=== PATIENT | female | born 1970 | race Caucasian/White ===

== ENCOUNTER → 2018-02-10 09:49 | Outpatient (CLI) | payer BC, SELFPAY ==
--- NOTE | 2018-02-10 09:57 | CT_ITS ---
CT abdomen pelvis wo/w con Ordering Physician: Cl Berman MD Patient Age: 47 years: Female HISTORY: ITS.REASON: r/o Hernia Right lower quadrant pain possible hernia possible pain related to ensure thousand TECHNIQUE: Helical CT scanning performed through the abdomen and pelvis following bolus administration 75 cc [id number]. COMPARISON :None FINDINGS Lung bases are clear. Probable small hiatal hernia. Heart normal size Abdomen/pelvis. Liver, spleen, pancreas satisfactory. Adrenals unremarkable. Gallbladder is been removed no biliary ductal dilatation. . Aorta normal caliber SMA celiac renal artery origins satisfactory. Pelvis. The left Essure filament is seen extending from the body of the uterus towards the left cornu at its junction with the left fallopian tube The right Essure filament extends more peripherally through the right cornu and towards the right adnexa. It is difficult to confirm its position relative to the right fallopian tube. It Seems to reside along the anterior aspect of right fallopian tube. Please feel free to review images with us in radiology The small 2.5 cm right ovary is seen just lateral to the tip of this more peripherally extending right Essure filament The appendix is normal. Terminal ileum is normal. Moderate stool is seen throughout the colon most generous at the right colon. Perhaps slight increased stool right colon Osseous. Mild degenerative facet changes at the lowermost L-spine. Benign appearing bone islands 7.5 x 8 mm at the left iliac bone just lateral to left SI joint. IMPRESSION: - 1. No acute findings abdomen pelvis. Appendix normal. Terminal ileum unremarkable. No free fluid. No free air. 2. Moderate stool throughout colon most generous and evident throughout the right colon. 3. Bilateral Essure filament.: The right Essure filament extends significant more peripheral, more lateral than does the left. Theright Essure filament extends throughthe cornu with tip likely just medial to the right ovary Feel free to review images with us and radiology The left Essure filame nt extends from the body of uterus to the cornu & likely just to the junction with the left fallopian tube
== END ==
PROVIDERS: Family Provider Internal Medicine Adolescent Medicine; PCP Internal Medicine Adolescent Medicine; Visit Provider Nurse Practitioner Obstetrics & Gynecology
DX: R10.2 Pelvic and perineal pain (principal); R10.31 Right lower quadrant pain
CPT/HCPCS: 74170; 74178; Q9967

== ENCOUNTER → 2018-02-23 10:53 | Outpatient (CLI) | payer BC, SELFPAY ==
--- NOTE | 2018-02-23 10:54 | MM_ITS ---
MM Dig screening mamm BI w/CAD CAD Screening COMPARISON: Digital mammograms 02/12/2017 and 02/10/2016 INDICATION: There is no personal or family history of breast cancer TECHNIQUE: Standard CC and MLO images were obtained. R2 CAD reviewed. FINDINGS: Mild to moderate diffuse fibroglandular densities are seen throughout both breasts basically stable and unchanged from previous exams. There is no suspicious lesion and no suspicious microcalcifications. There are small nodes in both axilla. IMPRESSION: Stable exam no suspicious lesion seen BI-RADS Category: 1 Negative RECOMMENDED FOLLOW-UP: 1YR - 1 YEAR FOLLOW-UP (A letter has been sent to the patient regarding results of the study.)
== END ==
PROVIDERS: Family Provider Internal Medicine Adolescent Medicine; PCP Internal Medicine Adolescent Medicine; Visit Provider Nurse Practitioner Obstetrics & Gynecology
DX: Z12.31 Encounter for screening mammogram for malignant neoplasm of breast (principal)
CPT/HCPCS: 77067

== ENCOUNTER → 2019-01-25 13:34 | Outpatient (CLI) | payer BC, SELFPAY ==
--- NOTE | 2019-01-25 13:36 | CA_ITS ---
PROCEDURE: 2-D M-mode and color Doppler study INDICATIONS FOR THE TEST: Chest pain COPD Heart Murmur Tobacco Smoking Palpitations Fatigue Syncope Edema Hypertension Diabetes Mellitus Rheumatic Fever SOB CELESTIN Obesity Hyperlipidemia+ Family History HD Additional History abn ekg PATIENT INFORMATION HEIGHT: 66 WEIGHT:209 GENDER: Female B/P:116/74 2-D/M-MODE INTERPRETATION: 2-D MEASUREMENTS OBSERVED VALUES IN CMS Right Ventricular Dimension (RVDd) 2.2 Interventricular Septum (Thickness)(IVsd) 1.0 Left Ventricular Internal Dimensions(LVIDd) 5.1 Left Ventricular Posterior Wall (Thickness)(LVPWd) 0.8 Aortic Root 2.3 Aortic Cusp Separation 1.9 Left Atrial Dimensions (LAD) 3.5 2D 1. Left atrium is normal size, left ventricle is normal size, there is preserved left ventricular systolic function, visually estimated ejection fraction 55% with no regional wall motion abnormality. 2. The right ventricle are normal size and contractility. 3. The aortic, mitral and tricuspid valvular grossly normal. 4. The pulmonic valve is poorly visualized. 6. No significant pericardial effusion noted DOPPLER INTERROGATION: Doppler interrogation of the aortic, mitral and tricuspid valvular presence of mild mitral and tricuspid regurgitation, tricuspid regurgitation jet velocity is inadequate for calculation of the right ventricular systolic diastolic parameters are within normal range. CONCLUSION: 1. Normal left ventricular size, preserved left ventricular systolic function, visually estimated ejection fraction 55% with no regional wall motion abnormality, diastolic parameters are within normal range. 2. Mild mitral and tricuspid regurgitation 3. No significant pericardial effusion noted.
== END ==
PROVIDERS: PCP Internal Medicine Adolescent Medicine; Visit Provider Internal Medicine
DX: I49.3 Ventricular premature depolarization (principal)
CPT/HCPCS: 93306

== ENCOUNTER → 2019-02-07 09:00 | Outpatient (CLI) | payer BC, SELFPAY ==
--- NOTE | 2019-02-07 09:01 | MM_ITS ---
MM Dig screening mamm BI w/CAD ORDERING PHYSICIAN : Cl Berman MD PATIENT AGE: 48 years GENDER: Female COMPARISON: February 2016, February 2017, February INDICATION: ITS.REASON: Routine Screening Mammogram No hormones no new complaints noncontributory family history TECHNIQUE: Standard CC and MLO images were obtained. R2 CAD reviewed. . Additional axillary CC view right breast included \ FINDINGS: Moderate breast density with scattered fibrolinear elements throughout mainly the superior breast again noted . No significant new findings. No suspicious or dominant mass. No suspicious calcifications. The small nodular density medial left breast anteriorly on cc view is again noted-is less evident than studies from 2015, 2016 Bilateral follow-up in one year recommended. ------IMPRESSION: Stable bilateral mammogram. No significant new areas of concern. Moderate breast density. Bilateral follow-up one year recommended BI-RADS Category: 2 Benign Finding(s) RECOMMENDED FOLLOW-UP: 1YR 1 YEAR FOLLOW-UP (A letter has been sent to the patient regarding results of the study.)
[2019-02-07 09:43] LABS: Basophils % 0.6 % (0.1-2.0); Eosinophils # 0.2 K/mm3 (0.0-0.4); Hematocrit 40.9 % (37.0-47.0); Hemoglobin 13.6 g/dL (12.2-16.2); Lymphocytes # 2.5 K/mm3 (0.7-4.5); Lymphocytes % 36.6 % (10-50); Mean Corpuscular HGB Conc 33.4 g/dL (31.8-35.4); Mean Corpuscular Hemoglobin 30.1 pg (27.0-31.2); Mean Platelet Volume 7.2 fl (7.4-10.4); Monocytes # 0.2 K/mm3 (0.1-1.0); Monocytes % 3.5 % (1.7-9.3); Neutrophils # 3.8 K/mm3 (1.8-7.8); Neutrophils % 56.3 % (37.0-80.0); Platelet Count 226 K/mm3 (142-424); Red Blood Count 4.54 M/mm3 (4.20-5.40); Red Cell Distribution Width 13.4 % (11.5-17.5); White Blood Count 6.8 K/mm3 (4.8-10.8)
[2019-02-07 10:54] LABS: Alanine Aminotransferase 22 U/L (12-78); Albumin Level 3.6 gm/dL (3.4-5.0); Alkaline Phosphatase 117 U/L (46-116); Anion Gap 13.1 mEq/L (5-15); Aspartate Amino Transferase 15 U/L (15-37); Bilirubin,Total 0.4 mg/dL (0.2-1.0); Blood Urea Nitrogen 15 mg/dL (7-18); Calcium 9.3 mg/dL (8.5-10.1); Carbon Dioxide 27 mmol/L (21.0-32.0); Chloride 106 mmol/L (98-107); Chol/HDL Ratio 5.7 (1-3.5); Cholesterol 263 mg/dL (140-200); Creatinine,Serum 0.88 mg/dL (0.55-1.02); Estimated Glomerular Filt Rate 69 ml/min (>60); Free Thyroxine Index 2.5 ug/dL (5.93-13.13); GFR (African American) 83 ML/MIN (>60); Globulin 3.5 gm/dl (1.3-3.2); Glucose 98 mg/dL (74-106); HDL Cholesterol 46 mg/dL (29-89); LDL Cholesterol 197 mg/dL (0-130); Magnesium 2.2 mg/dL (1.4-2.2); Potassium 4.1 mmoL/L (3.5-5.1); Sodium 142 mmol/L (136-145); T4 (Thyroxine) 7.3 ug/dl (4.7-13.3); Thyroid Stimulating Hormone 1.11 uIU/ml (0.358-3.740); Total Protein,Serum 7.1 gm/dL (6.4-8.2); Triglycerides 98 mg/dL (30-200); Triiodothryronine (T3) Uptake 34 % (31-39); VLDL Cholesterol 20 mg/dL (0-40)
[2019-02-08 14:12] LABS: Vitamin B12 299 pg/mL (232-1245)
== END ==
PROVIDERS: PCP Internal Medicine Adolescent Medicine; Visit Provider Nurse Practitioner Obstetrics & Gynecology
DX: Z12.31 Encounter for screening mammogram for malignant neoplasm of breast (principal); E53.8 Deficiency of other specified B group vitamins; E78.5 Hyperlipidemia, unspecified; Z87.898 Personal history of other specified conditions
CPT/HCPCS: 36415; 77067; 80053; 80061; 82607; 83735; 84436; 84443; 84479; 85025

== ENCOUNTER → 2019-11-24 13:39 | Outpatient (CLI) | payer OTHER, SELFPAY ==
[2019-11-24 14:46] LABS: Basophils # 0.1 K/mm3 (0-0.2); Basophils % 0.5 % (0.1-2.0); Eosinophils # 0.2 K/mm3 (0.0-0.4); Eosinophils % 1.6 % (0.1-12.0); Hematocrit 42.4 % (37.0-47.0); Hemoglobin 13.1 g/dL (12.2-16.2); Lymphocytes # 2.6 K/mm3 (0.7-4.5); Lymphocytes % 23.8 % (10-50); Mean Corpuscular HGB Conc 30.8 g/dL (31.8-35.4); Mean Corpuscular Volume 94.1 fl (81-99); Mean Platelet Volume 7.3 fl (7.4-10.4); Monocytes # 0.5 K/mm3 (0.1-1.0); Monocytes % 4.2 % (1.7-9.3); Neutrophils # 7.6 K/mm3 (1.8-7.8); Neutrophils % 69.9 % (37.0-80.0); Platelet Count 269 K/mm3 (142-424); Red Blood Count 4.51 M/mm3 (4.20-5.40); Red Cell Distribution Width 14.6 % (11.5-17.5); White Blood Count 10.9 K/mm3 (4.8-10.8)
[2019-11-24 15:34] LABS: Alanine Aminotransferase 26 U/L (12-78); Albumin Level 3.4 gm/dL (3.4-5.0); Albumin/Globulin Ratio 1.2 (1.1-1.8); Alkaline Phosphatase 119 U/L (46-116); Anion Gap 11.5 mEq/L (5-15); Aspartate Amino Transferase 12 U/L (15-37); Bilirubin,Total 0.4 mg/dL (0.2-1.0); Blood Urea Nitrogen 22 mg/dL (7-18); Calcium 9.2 mg/dL (8.5-10.1); Carbon Dioxide 31 mmol/L (21.0-32.0); Chloride 105 mmol/L (98-107); Creatinine,Serum 0.94 mg/dL (0.55-1.02); Estimated Glomerular Filt Rate 64 ml/min (>60); GFR (African American) 77 ML/MIN (>60); Globulin 2.9 gm/dl (1.3-3.2); Glucose 111 mg/dL (74-106); Potassium 4.5 mmoL/L (3.5-5.1); Sodium 143 mmol/L (136-145); Thyroid Stimulating Hormone 1.14 uIU/ml (0.358-3.740); Total Protein,Serum 6.3 gm/dL (6.4-8.2)
[2019-11-24 15:48] LABS: Hemoglobin A1C 5.7 % (0.0-7.0)
[2019-11-26 10:51] LABS: Vitamin B12 411 pg/mL (232-1245)
== END ==
PROVIDERS: Visit Provider Internal Medicine Adolescent Medicine
DX: M79.2 Neuralgia and neuritis, unspecified (principal)
CPT/HCPCS: 36415; 80053; 82607; 83036; 84443; 85025

== ENCOUNTER → 2019-12-07 10:49 | Outpatient (CLI) | payer OTHER, SELFPAY ==
--- NOTE | 2019-12-07 10:53 | CA_ITS ---
APPROVED REPORT Manager Line: CT Laterality: Bilateral Study Quality: Good Indications: palps Risk Factors Hyperlipidemia Doppler Spectral Velocity Analysis ECA (R) 87.70/15.50 cm/s ECA (L) 56.50/12.40 cm/s dICA (R) 118.40/49.60 cm/s dICA (L) 92.00/41.60 cm/s Lexii (R) 83.20/34.40 cm/s Lexii (L) 93.50/41.90 cm/s pICA (R) 118.50/33.70 cm/s pICA (L) 75.50/34.20 cm/s dCCA (R) 83.10/27.40 cm/s dCCA (L) 83.20/30.40 cm/s pCCA (R) 99.40/27.40 cm/s pCCA (L) 119.20/28.80 cm/s Vert (R) 48.70/16.60 cm/s Vert (L) 35.00/13.10 cm/s Findings Duplex evaluation demonstrates stenosis of the right proximal internal carotid artery <20% with PSV <140 cm/sec, EDV <100 cm/sec, and IC/CC Ratio <4.0. Duplex evaluation demonstrates stenosis of the left proximal internal carotid artery <20% with PSV <140 cm/sec, EDV <100 cm/sec, and IC/CC Ratio <4.0. Duplex evaluation demonstrates antegrade flow of the bilateral Vertebral Arteries. Conclusion No increased velocities to suggest hemodynamically significant stenosis in either internal carotid artery. Electronically signed by : Mack Gregorio MD 12/08/2019 17:34:43
[2019-12-07 16:07] LABS: Alanine Aminotransferase 36 U/L (12-78); Albumin Level 3.7 gm/dL (3.4-5.0); Alkaline Phosphatase 120 U/L (46-116); Aspartate Amino Transferase 19 U/L (15-37); Bilirubin,Direct 0.2 mg/dL (0.0-0.2); Bilirubin,Indirect 0.6 mg/dL (0.0-0.9); Bilirubin,Total 0.8 mg/dL (0.2-1.0); Chol/HDL Ratio 3.6 (1-3.5); Cholesterol 205 mg/dL (140-200); HDL Cholesterol 57 mg/dL (29-89); LDL Cholesterol 135 mg/dL (0-130); Triglycerides 64 mg/dL (30-200); VLDL Cholesterol 13 mg/dL (0-40)
== END ==
PROVIDERS: PCP Internal Medicine Adolescent Medicine; Visit Provider Internal Medicine Cardiovascular Disease
DX: R00.2 Palpitations (principal); R20.0 Anesthesia of skin; R94.31 Abnormal electrocardiogram [ECG] [EKG]; E78.5 Hyperlipidemia, unspecified
CPT/HCPCS: 36415; 80061; 80076; 93270; 93880

== ENCOUNTER → 2019-12-07 10:54 | Outpatient (CLI) | payer SELFPAY ==
--- NOTE | 2019-12-07 11:01 | CT_ITS ---
PROCEDURE: CT HEART W CALCIUM SCORE CLINICAL HISTORY: palps COMPARISON: No exams were available for comparison TECHNIQUE: Axial images obtained with sagittal and coronal reformats. All CT scans at the facility use one or more dose reduction, viz: automated exposure control, ma/kV adjustment per patient size (including targeted exams where dose is matched to indication, i.e. head), or iterative reconstruction technique. FINDINGS: Coronary artery calcium score is 0. However, on inspection of the images there is a small focus of calcification at the proximal LAD. The score was recalculated and a once again came up as 0. Incidental findings include a small amount of gas in the distal esophagus nonspecific but could be seen with reflux and evidence of old granulomatous disease. IMPRESSION: The coronary artery calcium score is calculated as 0. There is a small focus of calcification noted at the proximal LAD but not captured by the computer. Would imagine that the score would be less than 10 indicating low cardiovascular disease risk. Dictated by: Mack Gregorio MD 12/09/2019 13:04 Electronically signed by Mack Gregorio MD in [place] 12/09/2019 13:04
== END ==
PROVIDERS: PCP Internal Medicine Adolescent Medicine; Visit Provider Internal Medicine Cardiovascular Disease
DX: Z13.6 Encounter for screening for cardiovascular disorders (principal); R00.2 Palpitations; R20.0 Anesthesia of skin
CPT/HCPCS: 75571

== ENCOUNTER → 2019-12-22 15:07 | Outpatient (CLI) | payer OTHER, SELFPAY | PROVIDERS: PCP Internal Medicine Adolescent Medicine; Visit Provider Nurse Practitioner Family | DX: G47.33 Obstructive sleep apnea (adult) (pediatric) (principal); G47.9 Sleep disorder, unspecified; R53.83 Other fatigue | CPT/HCPCS: 94762 ==

== ENCOUNTER → 2020-01-04 08:47 | Outpatient (CLI) | payer OTHER, SELFPAY ==
--- NOTE | 2020-01-04 08:50 | MR_ITS ---
PROCEDURE: MR HEAD/BRAIN WO CON CLINICAL INDICATION: TRIGEMINAL NEURALGIA OF RT SIDE OF FACE, ACUTE NONINTRACTABL Tingling in the head and face on right and left side COMPARISON: No exams were available for comparison TECHNIQUE: Routine multiplanar multi echo sequences are performed without gadolinium enhancement. FINDINGS: No midline shift, mass effect, intracranial hemorrhage, or hydrocephalus is evident. No evidence of acute infarction. The cerebellopontine angles, cerebellum, and brainstem have an unremarkable appearance. The pituitary, optic chiasm, corpus callosum, and craniocervical junction have an unremarkable appearance. No mastoid effusion or sinus air-fluid level. In the right frontal region within the subdural area there is some heterogeneous mixed signal intensity. This is of questionable clinical significance. Possibly related to some complex subcortical calcification versus some mildly prominent subdural vessels. Would recommend CT of the head without and with contrast for better evaluation of the calvarium and possible subdural AVM at this region. IMPRESSION: 1. No acute intracranial findings. 2. In the right frontal region within the subdural area there is some heterogeneous mixed signal intensity. This is of questionable clinical significance and possibly related to some complex subcortical calcification versus some mildly prominent subdural vessels. Would recommend CT of the head without and with contrast for better evaluation of the calvarium and possible subdural AVM at this region Dictated by: Mack Gregorio MD 01/05/2020 09:34 Electronically signed by Mack Gregorio MD in [place] 01/05/2020 09:34
== END ==
PROVIDERS: PCP Internal Medicine Adolescent Medicine; Visit Provider Internal Medicine Adolescent Medicine
DX: G50.0 Trigeminal neuralgia (principal); R51 Headache
CPT/HCPCS: 70551

== ENCOUNTER → 2020-04-08 12:59 | Outpatient (CLI) | payer OTHER, SELFPAY ==
--- NOTE | 2020-04-08 13:15 | MM_ITS ---
PROCEDURE: MM DIG SCREENING MAMM BI W/CAD Digital Breast Tomosynthesis Included CLINICAL INDICATION: screening xmg There is no personal or family history of breast cancer COMPARISON: [facility] DIG MAMM-SCREEN KATHY W/CAD from 02/12/2017 [facility] MM Dig screening mamm BI w/CAD from 02/23/2018 [facility] MM Dig screening mamm BI w/CAD from 02/07/2019 TECHNIQUE: Standard CC and MLO images and 3D Tomosynthesis was obtained. R2 CAD reviewed. FINDINGS: Moderate diffuse fibroglandular densities are seen in the central portions of both breast and upper outer quadrants. There has been some fatty involution of the breast parenchyma since the 2 most recent exams. There is a possible new asymmetric density lower outer quadrant right breast best seen on the joselito images. Recommend the patient return for spot compression views and ultrasound for additional evaluation. IMPRESSION: Fibrofatty parenchyma with possible new asymmetric density BI-RAD Category: 0 Need Additional Imaging Evaluation FOLLOW-UP: IMM Immediate Follow-up Recommended (A letter has been sent to the patient regarding results of the study.) Dictated by: Dr. Tung Cavazos MD 04/08/2020 19:[address] Tung Cavazos MD in [place] 04/08/2020 19:35
== END ==
PROVIDERS: PCP Internal Medicine Adolescent Medicine; Visit Provider Nurse Practitioner Obstetrics & Gynecology
DX: Z12.31 Encounter for screening mammogram for malignant neoplasm of breast (principal)
CPT/HCPCS: 77063; 77067

== ENCOUNTER → 2020-04-11 12:40 | Outpatient (CLI) | payer OTHER, SELFPAY ==
--- NOTE | 2020-04-11 12:40 | MM_ITS ---
PROCEDURE: MM DIG MAMM DX UNILAT RT CAD Right breast ultrasound complete with axilla CLINICAL INDICATION: Abnormal Mamm Follow-up abnormal mammogram, asymmetric density COMPARISON: [facility] MM Dig screening mamm BI w/CAD from 02/23/2018 [facility] MM Dig screening mamm BI w/CAD from 02/07/2019 MM DIG SCREENING MAMM BI W/CAD from 04/08/2020 US BREAST RT COMPLETE from 04/11/2020 TECHNIQUE: Problem solving views performed of the right breast along with right breast ultrasound FINDINGS: There is average fibroglandular tissue. The area of asymmetry appears less apparent on the focal spot compression view. Right breast ultrasound: No cystic or solid lesions evident. Small nodes are present in the right axilla. IMPRESSION: BI-RAD Category: 3 Probably Benign Finding Short Term Follow-up FOLLOW-UP: 6M 6Month Follow-up (A letter has been sent to the patient regarding results of the study.) Dictated by: Mack Gregorio MD 04/12/2020 14:24 Electronically signed by Mack Gregorio MD in [place] 04/12/2020 14:24
== END ==
PROVIDERS: PCP Internal Medicine Adolescent Medicine; Visit Provider Nurse Practitioner Obstetrics & Gynecology
DX: R92.8 Other abnormal and inconclusive findings on diagnostic imaging of breast (principal)
CPT/HCPCS: 76641; 77061; 77065; G0279

== ENCOUNTER → 2020-04-18 10:35 | Outpatient (CLI) | payer OTHER, SELFPAY ==
--- NOTE | 2020-04-18 10:44 | CT_ITS ---
Procedure: CT ANGIO HEAD CLINICAL HISTORY: eval calvarium and for possible subdural AVM Facial numbness, follow-up abnormal MRI of the brain, possible subdural AVM COMPARISON: MR HEAD/BRAIN WO CON from 01/04/2020 TECHNIQUE: IV Contrast: 100ml Optiray 350 Axial images obtained with sagittal and coronal reformats. All CT scans at the facility use one or more dose reduction, viz: automated exposure control, ma/kV adjustment per patient size (including targeted exams where dose is matched to indication, i.e. head), or iterative reconstruction technique. FINDINGS: CT angiogram performed of the head with delayed images. Sagittal and coronal reformatted images are generated and reviewed as well. No evidence of aneurysm. No major intracranial occlusive process apparent.. There is persistent origin of the posterior cerebral arteries on both sides as a normal variant with small basilar artery. There is no evidence of a dural AVM. There is a defect within the right frontal bone along the endosteal surface which is felt to account for the MRI abnormality and may be a congenital defect. This is well-circumscribed with sclerotic margin. A vessel is present in this area however this does not have an appearance of an AVM. IMPRESSION: No AVM or aneurysm. There is an endosteal defect of the right frontal bone corresponding to the MRI abnormality and may only represent an incidental finding and may be due to an incidental arachnoid granulation. Six-month follow-up CT may confirm stability Dictated by: Mack Gregorio MD 04/19/2020 10:52 Electronically signed by Mack Gregorio MD in [place] 04/19/2020 10:52
[2020-04-18 10:57] LABS: Blood Urea Nitrogen 15 mg/dl (7-17); Estimated Glomerular Filt Rate 77 ml/min (>60); GFR (African American) 93 ML/MIN (>60)
== END ==
PROVIDERS: PCP Internal Medicine Adolescent Medicine; Visit Provider Specialist
DX: R90.89 Other abnormal findings on diagnostic imaging of central nervous system (principal); R20.0 Anesthesia of skin; R29.2 Abnormal reflex
CPT/HCPCS: 36415; 70496; 82565; 84520; Q9967

== ENCOUNTER → 2020-05-24 13:56 | Outpatient (CLI) | payer OTHER, SELFPAY ==
[2020-05-24 14:41] LABS: Chloride 104 mmol/L (98-107); Potassium 4.6 mmoL/L (3.5-5.1); Sodium 142 mmol/L (136-145)
[2020-05-24 14:44] LABS: Anion Gap 12.6 mEq/L (5-15); Blood Urea Nitrogen 10 mg/dl (7-17); Carbon Dioxide 30 mmol/L (22.0-30.0); Estimated Glomerular Filt Rate 89 ml/min (>60); GFR (African American) 108 ML/MIN (>60)
[2020-05-24 14:45] LABS: Calcium 10.2 mg/dl (8.4-10.2); Glucose 97 mg/dl (74-100)
[2020-05-24 15:26] LABS: Creatine Kinase 42 U/L (30-135)
[2020-05-26 10:02] LABS: Vitamin B12 881 pg/mL (232-1245)
== END ==
PROVIDERS: Internal Medicine Adolescent Medicine; Visit Provider Nurse Practitioner Family
DX: R90.89 Other abnormal findings on diagnostic imaging of central nervous system (principal); R29.2 Abnormal reflex; Z86.39 Personal history of other endocrine, nutritional and metabolic disease
CPT/HCPCS: 36415; 80048; 82550; 82607

== ENCOUNTER → 2020-08-06 14:45 | Outpatient (CLI) | payer OTHER, SELFPAY ==
--- NOTE | 2020-08-06 | MR_ITS ---
PROCEDURE: MR LUMBAR SPINE WO CON CLINICAL INDICATION: LBP LBP WITH BILATERAL LEG WEAKNESS. NO PRIOR. COMPARISON: MR MR HEAD/BRAIN WO CON from 01/04/2020 TECHNIQUE: Standard multiplanar multiecho sequences are performed without contrast. 3-D MIP and myelographic images are also rendered and reviewed FINDINGS: There is normal alignment. The spinal cord ends at the L1-L2 level. L1-L2: Mild disc desiccation with slight decrease in the disc height. L2-L3: Unremarkable. L3-L4: Mild facet and ligamentum hypertrophy. L4-5: Mild facet ligamentum hypertrophy with mild bilateral foraminal narrowing. L5-S1: Minimal bulging disc with facet ligamentum hypertrophy with mild to moderate bilateral foraminal narrowing. No extruded herniated disc or bony canal stenosis. Small amount of fluid is present along the posterior aspect of the facet at L5-S1 indicating mild facet arthritic change. Small amount fluid is present in the left facet at L4-5 and at L3-L4. There is a T1 and T2 hyperintense lesion involving the L1 vertebral body at 10 mm and may be due to a hemangioma IMPRESSION: There are mild degenerative changes as detailed above with mild facet arthritic change. Please see above for detailed description at each level. No extruded herniated disc or canal stenosis. Dictated by: Mack Gregorio MD 08/07/2020 10:11 Mack Gregorio MD in [place] 08/07/2020 10:11
== END ==
PROVIDERS: PCP Internal Medicine Adolescent Medicine; Visit Provider Nurse Practitioner Family
DX: M54.5 Low back pain (principal); R20.0 Anesthesia of skin
CPT/HCPCS: 72148; 76376

== ENCOUNTER → 2020-09-09 16:24 | Outpatient (CLI) | payer OTHER, SELFPAY ==
[2020-09-09 19:53] LABS: Ferritin 48.8 ng/ml (6.24-137)
[2020-09-18 10:45] LABS: AChR Binding Abs 0.04 nmol/L (0.00-0.24); AChR Blocking Abs 17 % (0-25); AChR Modulating Ab <12 % (0-20); Anti-Striation (muscle) Abs Negative (Neg:<1:40)
== END ==
PROVIDERS: Visit Provider Nurse Practitioner Family
DX: H53.2 Diplopia (principal); E83.10 Disorder of iron metabolism, unspecified; R20.8 Other disturbances of skin sensation
CPT/HCPCS: 36415; 82728; 84238; 86255

== ENCOUNTER → 2020-09-10 10:48 | Outpatient (POV) | payer OTHER, SELFPAY | PROVIDERS: Visit Provider Dermatology | DX: Z00.00 Encounter for general adult medical examination without abnormal findings (principal) ==

== ENCOUNTER → 2020-11-04 08:06 | Outpatient (CLI) | payer OTHER, SELFPAY ==
--- NOTE | 2020-11-04 08:07 | CT_ITS ---
PROCEDURE: CT HEAD/BRAIN WO CON CLINICAL INDICATION: 6 month f/u per radiology recommendation COMPARISON: CT CT ANGIO HEAD from 04/18/2020 TECHNIQUE: Axial images obtained. All CT scans at the facility use one or more dose reduction, viz: automated exposure control, ma/kV adjustment per patient size (including targeted exams where dose is matched to indication, i.e. head), or iterative reconstruction technique. FINDINGS: No midline shift, mass effect, intracranial hemorrhage, hydrocephalus, or extra-axial fluid collection is evident. The focal defect and ostial service right frontal bone is again seen stable unchanged from the previous study and likely representing a congenital anomaly or possibly sequela of old trauma.. No mastoid effusion. The internal auditory canals appear normal. No sinus air-fluid level. IMPRESSION: Stable focal defect and ostial surface right frontal bone I believe no further evaluation is indicated this time period. Otherwise unremarkable noncontrast CT scan of the brain Dictated by: Dr. Tung Cavazos MD 11/04/2020 08:45 Dr. Tung Cavazos MD in [place] 11/04/2020 08:45
== END ==
PROVIDERS: PCP Internal Medicine Adolescent Medicine; Visit Provider Specialist
DX: R90.89 Other abnormal findings on diagnostic imaging of central nervous system (principal); R20.0 Anesthesia of skin
CPT/HCPCS: 70450

== ENCOUNTER 2021-01-24 21:33 | Emergency (ER) | payer OTHER, SELFPAY ==
[2021-01-24 22:30] VITALS: BMI 32.5
[2021-01-24 22:36] LABS: Adenovirus,PCR Not Detected (NotDetected); Bordetella Pertussis Not Detected (NotDetected); Chlamydophila Pneumoniae, PCR Not Detected (NotDetected); Coronavirus 19, PCR Not Detected (NotDetected); Coronavirus 229E Not Detected (NotDetected); Coronavirus NL63 Not Detected (NotDetected); Coronavirus OC43 Not Detected (NotDetected); Coronovirus HKU1,PCR Not Detected (NotDetected); Human Metapneumovirus Not Detected (NotDetected); Influenza A, PCR Not Detected (NotDetected); Influenza AH1, 2009 Not Detected (NotDetected); Influenza AH1, PCR Not Detected (NotDetected); Influenza AH3,PCR Not Detected (NotDetected); Influenza B, PCR Not Detected (NotDetected); Mycoplasma Pneumoniae, PCR Not Detected (NotDetected); Parainfluenza 1, PCR Not Detected (NotDetected); Parainfluenza 2, PCR Not Detected (NotDetected); Parainfluenza 3, PCR Not Detected (NotDetected); Parainfluenza 4, PCR Not Detected (NotDetected); Respiratory Syncytial Virus Not Detected (NotDetected); Rhinovirus/Enterovirus Not Detected (NotDetected)
[2021-01-24 22:47] VITALS: BP 00/00; PULSE 0; RESP 18; TEMP -17.7; TEMP 0
--- NOTE | 2021-01-25 07:22 | PC.NURSE ---
Pt called and got results to her URP swab.
== END 2021-01-24 22:46 | disposition left against medical advice (07) ==
LOC: ER 21:40
PROVIDERS: Emergency Provider Emergency Medicine; PCP Internal Medicine Adolescent Medicine
DX: Z20.822 Contact with and (suspected) exposure to COVID-19 (principal); R53.1 Weakness
CPT/HCPCS: 87581; 87633; 87798; 99211

== ENCOUNTER → 2021-01-25 11:20 | Outpatient (CLI) | payer OTHER, SELFPAY ==
[2021-01-25 11:57] LABS: Basophils % 0.2 % (0.1-2.0); Eosinophils % 0.2 % (0.1-12.0); Hematocrit 39.8 % (37.0-47.0); Hemoglobin 13.2 g/dL (12.2-16.2); Lymphocytes # 1.4 K/mm3 (0.7-4.5); Mean Corpuscular Hemoglobin 29.8 pg (27.0-31.2); Mean Corpuscular Volume 90.4 fl (81-99); Mean Platelet Volume 7.5 fl (7.4-10.4); Monocytes # 0.4 K/mm3 (0.1-1.0); Monocytes % 4.1 % (1.7-9.3); Neutrophils # 8.8 K/mm3 (1.8-7.8); Neutrophils % 82.5 % (37.0-80.0); Platelet Count 233 K/mm3 (142-424); Red Blood Count 4.41 M/mm3 (4.20-5.40); Red Cell Distribution Width 13.3 % (11.5-17.5); White Blood Count 10.7 K/mm3 (4.8-10.8)
[2021-01-25 13:19] LABS: Alanine Aminotransferase 20 U/L (12-78); Albumin Level 3.9 g/dl (3.5-5.0); Albumin/Globulin Ratio 1.5 (1.1-1.8); Alkaline Phosphatase 113 U/L (38-126); Anion Gap 13.9 mEq/L (5-15); Aspartate Amino Transferase 23 U/L (14-36); Bilirubin,Total 0.6 mg/dl (0.2-1.3); Blood Urea Nitrogen 12 mg/dl (7-17); Calcium 9.4 mg/dl (8.4-10.2); Carbon Dioxide 23 mmol/L (22.0-30.0); Chloride 105 mmol/L (98-107); Creatine Kinase 43 U/L (30-135); Estimated Glomerular Filt Rate 89 ml/min (>60); GFR (African American) 108 ML/MIN (>60); Globulin 2.6 g/dL (1.3-3.2); Glucose 132 mg/dl (74-100); Magnesium 1.9 mg/dl (1.6-2.3); Potassium 3.9 mmoL/L (3.5-5.1); Sodium 138 mmol/L (136-145); Total Protein,Serum 6.5 g/dl (6.3-8.2)
[2021-01-25 13:50] LABS: Thyroid Stimulating Hormone 1.03 uIU/mL (0.465-4.68)
[2021-01-25 14:08] LABS: Vitamin B12 566 pg/mL (239-931)
[2021-01-27 11:26] LABS: Hemoglobin A1C 5.5 % (4.0-6.0)
== END ==
PROVIDERS: Visit Provider Internal Medicine Adolescent Medicine
DX: M79.10 Myalgia, unspecified site (principal); E53.8 Deficiency of other specified B group vitamins; R73.9 Hyperglycemia, unspecified
CPT/HCPCS: 36415; 80053; 82550; 82607; 83036; 83735; 84443; 85025

== ENCOUNTER 2021-07-23 17:24 | Emergency (ER) | payer OTHER, SELFPAY ==
[2021-07-23] VITALS (8 sets, daily range): BP systolic 131–143; BP diastolic 83–90; PULSE 95–110; RESP 18–28; TEMP 37.1; O2SAT 88–99; BMI 34.8
--- NOTE | 2021-07-23 18:17 | ECG_ITS ---
APPROVED REPORT Exam: Resting ECG HR:99 bpm ECG Measurements Heart Rate 99 AXES AL 154 P 54 QRSd 80 QRS 30 QT 362 T 20 QTc 464 Conclusion Normal sinus rhythm Possible Left atrial enlargement Nonspecific ST abnormality Abnormal ECG Electronically signed by : Sean Machado MD 07/24/2021 07:31:29
--- NOTE | 2021-07-23 18:22 | HMH.EDUTC ---
[facility] [place] Clinical Impression: Chest pain Qualifiers: Chest pain type: unspecified Qualified Code(s): R07.9 - Chest pain, unspecified Disposition: Still a Patient Condition on Discharge: Fair Referrals: Sean Machado MD [Primary Care Provider] - Time of Disposition: 19:40 Medical Decision Making - Eulogio Inquiry Pt receiving controlled substance: No Eulogio was queried for this patient: No Vital Signs: 07/23/21 18:00 07/23/21 19:24 Temperature 98.8 F Temperature Source Oral Pulse Rate [Right] 103 H Respiratory Rate 18 Blood Pressure [Right Arm] 143/87 H Blood Pressure Mean [Right Arm] 105 02 Sat by Pulse Oximetry 99 88 L Oxygen Delivery Method Room Air Room Air - Lab Data Lab Results 07/23/21 18:20: WBC 8.9, RBC 4.79, Hgb 14.5, Hct 43.7, MCV 91.3, MCH 30.3, MCHC 33.2, RDW 12.9, Plt Count 323, MPV 7.2 L, Neut % (Auto) 68.7, Lymph % (Auto) 26.0, [place] % (Auto) 2.8, Eos % (Auto) 1.8, Baso % (Auto) 0.6, Neut # (Auto) 6.1, Lymph # (Auto) 2.3, [place] # (Auto) 0.3, Eos # (Auto) 0.2, Baso # (Auto) 0.1 07/23/21 18:20: Sodium 140, Potassium 4.1, Chloride 104, Carbon Dioxide 27, Anion Gap 13.1, BUN 14, Creatinine 0.80, Estimated Creat Clear 132, Estimated GFR 76, Est GFR ( Amer) 92, Glucose 120 H, Calcium 9.7, Total Bilirubin 0.7, AST 29, ALT 18, Alkaline Phosphatase 140 H, Troponin I < 0.01, Total Protein 8.0, Albumin 4.5, Globulin 3.5 H, Albumin/Globulin Ratio 1.3 Result diagrams: 07/23/21 18:20 07/23/21 18:20 Orders (Tests/Meds): ED MEDICATIONS Discontinued Medications Generic Name Dose Route Start Last Admin Trade Name Freq PRN Reason Stop Dose Admin Aspirin 325 mg 07/23/21 18:26 07/23/21 19:15 Aspirin 325mg Tablet PO 07/23/21 18:27 325 mg ONCE ONE Administration Medical Decision Narrative: Patient is going to be transferred back to the ED for further evaluation and work up for Chest pressure however no bed available at this time, Patient EKG done and given to Dr Chawla and he viewed and patient will wait in the [facility] until available bed in the ED Room now available Patient transferred to the ED room 6 [facility] [place] - General Stated complaint: Back pain Time Seen by Provider: 07/23/21 18:00 Mode of Arrival: Ambulatory Source of Information: Patient Description of Symptoms (Recalled from Triage Doc. 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 DENIES SOB. 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 having heavy feeling in the middle of her chest area that woud shoot sharp pain into chest and she started belching States that she had ECHO done last year and had test to check for blockages in her neck but all that was good States that heaviness belching and pain has continued throughout the day States that she has also been having achy like pain in her lower back but she has that from time to time Denies SOA, Denies radiation of pain - Related Data Home Medications Medication Instructions Recorded Confirmed alprazolam 1 mg tablet 1 mg PO QHS tab 12/13/19 06/04/21 duloxetine 60 mg capsule,delayed 60 mg PO DAILY cap 04/23/21 06/04/21 release Previous Rx's Medication Instructions Recorded aspirin 81 mg tablet,delayed 81 mg PO DAILY #30 tab 12/07/19 release propranolol 60 mg capsule,24 60 mg PO DAILY #90 cap 03/10/21 hr,extended release Allergies Allergy/AdvReac Type Severity Reaction Status Date / Time No Known Allergies Allergy Verified 07/23/21 18:05 - Worker's Comp Is this a Worker's Comp case?: No [facility] History - Hepatitis A Screen Drug
--- NOTE | 2021-07-23 18:26 | XR_ITS ---
PROCEDURE INFORMATION: Exam: XR Chest Exam date and time: 07/23/2021 6:26 PM Age: 50 years old Clinical indication: Other: Pain in low back; Additional info: Cp TECHNIQUE: Imaging protocol: XR of the chest. Views: 2 views. Total images: 2 COMPARISON: CT ABDOMEN PELVIS W CON 06/21/2019 6:24 PM FINDINGS: Lungs: Normal pulmonary expansion. Pulmonary vasculature grossly normal. No gross pulmonary infiltrates or edema pattern. Pleural spaces: No pleural effusion. No pneumothorax. Heart/Mediastinum: 5 mm granulomatous calcification projecting in the peripheral left mid lung, better characterized on the coronary CT 12/07/2019 demonstrating dense calcification. Heart size normal. No tracheal/mediastinal shift. Bones/joints: No acute osseous abnormalities are identified. Organs: Right upper quadrant surgical clips suggest prior cholecystectomy. IMPRESSION: No acute thoracic process.
[2021-07-23 18:40] LABS: Basophils # 0.1 K/mm3 (0-0.2); Basophils % 0.6 % (0.1-2.0); Eosinophils # 0.2 K/mm3 (0.0-0.4); Eosinophils % 1.8 % (0.1-12.0); Hematocrit 43.7 % (37.0-47.0); Hemoglobin 14.5 g/dL (12.2-16.2); Lymphocytes # 2.3 K/mm3 (0.7-4.5); Mean Corpuscular HGB Conc 33.2 g/dL (31.8-35.4); Mean Corpuscular Hemoglobin 30.3 pg (27.0-31.2); Mean Corpuscular Volume 91.3 fl (81-99); Mean Platelet Volume 7.2 fl (7.4-10.4); Monocytes # 0.3 K/mm3 (0.1-1.0); Monocytes % 2.8 % (1.7-9.3); Neutrophils # 6.1 K/mm3 (1.8-7.8); Neutrophils % 68.7 % (37.0-80.0); Platelet Count 323 K/mm3 (142-424); Red Blood Count 4.79 M/mm3 (4.20-5.40); Red Cell Distribution Width 12.9 % (11.5-17.5); White Blood Count 8.9 K/mm3 (4.8-10.8)
[2021-07-23 18:45] LABS: Alanine Aminotransferase 18 U/L (12-78); Albumin Level 4.5 g/dl (3.5-5.0); Albumin/Globulin Ratio 1.3 (1.1-1.8); Alkaline Phosphatase 140 U/L (38-126); Anion Gap 13.1 mEq/L (5-15); Aspartate Amino Transferase 29 U/L (14-36); Bilirubin,Total 0.7 mg/dl (0.2-1.3); Blood Urea Nitrogen 14 mg/dl (7-17); Calcium 9.7 mg/dl (8.4-10.2); Carbon Dioxide 27 mmol/L (22.0-30.0); Chloride 104 mmol/L (98-107); Creatinine Clearance Estimated 132 mL/min (50-200); Estimated Glomerular Filt Rate 76 ml/min (>60); GFR (African American) 92 ML/MIN (>60); Globulin 3.5 g/dL (1.3-3.2); Glucose 120 mg/dl (74-100); Potassium 4.1 mmoL/L (3.5-5.1); Sodium 140 mmol/L (136-145)
[2021-07-23 18:59] LABS: Troponin I < 0.01 ng/ml (0.00-0.034)
--- NOTE | 2021-07-23 22:00 | HMH.EDGENADL ---
ED Disposition Clinical Impression: Chest pain Qualifiers: Chest pain type: unspecified Qualified Code(s): R07.9 - Chest pain, unspecified Disposition: Home, Self-Care Condition on Discharge: Good Instructions: DI for Chest Pain Additional Instructions: Additional instructions for CHEST PAIN: See your physician as soon as possible for further evaluation. Return immediately if worsening chest pain, vomiting, shortness of breath, fever, coughing of blood. Referrals: Sean Machado MD [Primary Care Provider] - - Critical Care Critical Care Time: No Attestation: On 07/23/21, the high probability of a clinically significant, sudden or life threatening deterioration of the following system(s) required my full and direct attention, intervention and personal management. The time I documented below is in addition to time spent performing reported procedures but includes the following listed in this critical care notation. Medical Decision Making - Eulogio Inquiry Pt receiving controlled substance: No Vital Signs: 07/23/21 18:00 07/23/21 19:24 07/23/21 22:18 Temperature 98.8 F 98.8 F Temperature Source Oral Pulse Rate 95 H Pulse Rate [Right] 103 H Respiratory Rate 18 18 Blood Pressure 131/90 Blood Pressure [Right Arm] 143/87 H Blood Pressure Mean [Right Arm] 105 Blood Pressure Source Automatic Cuff Blood Pressure Position Sitting 02 Sat by Pulse Oximetry 99 88 L Oxygen Delivery Method Room Air Room Air Room Air - Lab Data Lab Results 07/23/21 18:20: WBC 8.9, RBC 4.79, Hgb 14.5, Hct 43.7, MCV 91.3, MCH 30.3, MCHC 33.2, RDW 12.9, Plt Count 323, MPV 7.2 L, Neut % (Auto) 68.7, Lymph % (Auto) 26.0, [place] % (Auto) 2.8, Eos % (Auto) 1.8, Baso % (Auto) 0.6, Neut # (Auto) 6.1, Lymph # (Auto) 2.3, [place] # (Auto) 0.3, Eos # (Auto) 0.2, Baso # (Auto) 0.1 07/23/21 18:20: Sodium 140, Potassium 4.1, Chloride 104, Carbon Dioxide 27, Anion Gap 13.1, BUN 14, Creatinine 0.80, Estimated Creat Clear 132, Estimated GFR 76, Est GFR ( Amer) 92, Glucose 120 H, Calcium 9.7, Total Bilirubin 0.7, AST 29, ALT 18, Alkaline Phosphatase 140 H, Troponin I < 0.01, Total Protein 8.0, Albumin 4.5, Globulin 3.5 H, Albumin/Globulin Ratio 1.3 Result diagrams: 07/23/21 18:20 07/23/21 18:20 Orders (Tests/Meds): ED MEDICATIONS Discontinued Medications Generic Name Dose Route Start Last Admin Trade Name Nuno PRN Reason Stop Dose Admin Aspirin 325 mg 07/23/21 18:26 07/23/21 19:15 Aspirin 325mg Tablet PO 07/23/21 18:27 325 mg ONCE ONE Administration - Radiology Data #1 Image(s): Chest Image Reviewed: Yes I have reviewed radiologist's interpretation PROCEDURE INFORMATION: Exam: XR Chest Exam date and time: 07/23/2021 6:26 PM Age: 50 years old Clinical indication: Other: Pain in low back; Additional info: Cp TECHNIQUE: Imaging protocol: XR of the chest. Views: 2 views. Total images: 2 COMPARISON: CT ABDOMEN PELVIS W CON 06/21/2019 6:24 PM FINDINGS: Lungs: Normal pulmonary expansion. Pulmonary vasculature grossly normal. No gross pulmonary infiltrates or edema pattern. Pleural spaces: No pleural effusion. No pneumothorax. Heart/Mediastinum: 5 mm granulomatous calcification projecting in the peripheral left mid lung, better characterized on the coronary CT 12/07/2019 demonstrating dense calcification. Heart size normal. No tracheal/mediastinal shift. Bones/joints: No acute osseous abnormalities are identified. Organs: Right upper quadrant surgical clips suggest prior cholecystectomy. IMPRESSION: No acute thoracic process. - ECG Data Tracing #1 EKG interpreted by Jere Crystal MD: Rhythm: sinus Rate: 99 Belk: normal Ectopy: none Conduction: normal ST Segment Changes: none T Wave Changes: none Q Waves: none No evidence of acute ischemia or injury Prior electrocardiagram
--- NOTE | 2021-07-23 22:19 | PC.NURSE ---
at 192 LIZETH charted an oxygen sat of 88% on room air. That v/s was entered in error and it cannot be removed since that nurse has left for the shift. Will update v/s.
== END 2021-07-23 22:26 | disposition home or self-care (01) ==
LOC: UTC 18:05 → ER 19:31
PROVIDERS: Family Medicine; Emergency Provider Emergency Medicine; PCP Internal Medicine Adolescent Medicine
DX: R07.89 Other chest pain (principal); E78.5 Hyperlipidemia, unspecified; F41.9 Anxiety disorder, unspecified
CPT/HCPCS: 71046; 80053; 84484; 85025; 93005; 99283

== ENCOUNTER → 2022-08-14 13:48 | Outpatient (CLI) | payer OTHER, SELFPAY ==
[2022-08-14 14:52] LABS: Basophils # 0.1 K/mm3 (0-0.2); Basophils % 1.8 % (0.1-2.0); Eosinophils # 0.1 K/mm3 (0.0-0.4); Eosinophils % 1.7 % (0.1-12.0); Hematocrit 42.6 % (37.0-47.0); Hemoglobin 14.3 g/dL (12.2-16.2); Lymphocytes # 2.6 K/mm3 (0.7-4.5); Lymphocytes % 43.8 % (10-50); Mean Corpuscular HGB Conc 33.5 g/dL (31.8-35.4); Mean Corpuscular Hemoglobin 30.4 pg (27.0-31.2); Mean Corpuscular Volume 90.9 fl (81-99); Monocytes # 0.4 K/mm3 (0.1-1.0); Monocytes % 7.3 % (1.7-9.3); Neutrophils # 2.7 K/mm3 (1.8-7.8); Neutrophils % 45.3 % (37.0-80.0); Platelet Count 264 K/mm3 (142-424); Red Blood Count 4.69 M/mm3 (4.20-5.40); Red Cell Distribution Width 13.7 % (11.5-17.5)
[2022-08-14 15:14] LABS: Chloride 101 mmol/L (98-107); Potassium 4.5 mmoL/L (3.5-5.1); Sodium 141 mmol/L (136-145)
[2022-08-14 15:17] LABS: Alanine Aminotransferase 28 U/L (12-78); Albumin Level 4.2 g/dl (3.5-5.0); Albumin/Globulin Ratio 1.4 (1.1-1.8); Alkaline Phosphatase 138 U/L (38-126); Anion Gap 13.5 mEq/L (5-15); Aspartate Amino Transferase 36 U/L (14-36); Bilirubin,Total 0.3 mg/dl (0.2-1.3); Blood Urea Nitrogen 11 mg/dl (7-17); Carbon Dioxide 31 mmol/L (22.0-30.0); Estimated Glomerular Filt Rate 76 ml/min (>60); GFR (African American) 92 ML/MIN (>60); Total Protein,Serum 7.2 g/dl (6.3-8.2)
[2022-08-14 15:18] LABS: Calcium 9.5 mg/dl (8.4-10.2); Glucose 94 mg/dl (74-100)
== END ==
PROVIDERS: PCP Internal Medicine Adolescent Medicine; Visit Provider Nurse Practitioner Family
DX: R50.9 Fever, unspecified (principal)
CPT/HCPCS: 36415; 80053; 85025

== ENCOUNTER → 2022-08-18 09:50 | Outpatient (CLI) | payer OTHER, SELFPAY ==
--- NOTE | 2022-08-18 09:51 | MM_ITS ---
PROCEDURE INFORMATION: Exam: MG Bilateral Screening 3D Mammography Exam date and time: 08/18/2022 9:42 AM Age: 52 years old Clinical indication: Screening examination TECHNIQUE: Imaging protocol: Bilateral Screening tomosynthesis and 2D mammography including computer-aided detection (CAD) when performed. COMPARISON: 1. MG MM DIG MAMM DX UNILAT RT CAD 04/11/2020 1:03 PM 2. MG MM DIG SCREENING MAMM BI W/CAD 04/08/2020 1:20 PM FINDINGS: MAMMOGRAPHY: Breast composition: There are scattered areas of fibroglandular density. Mass: None. Architectural distortion: None. Calcifications: No suspicious calcifications. Asymmetric density: None. Skin thickening: None. Axillary adenopathy: None. IMPRESSION: No mammographic evidence of malignancy. Annual screening is recommended unless otherwise clinically indicated. ASSESSMENT: BI-RADS Category 1: Negative
== END ==
PROVIDERS: PCP Internal Medicine Adolescent Medicine; Visit Provider Nurse Practitioner Obstetrics & Gynecology
DX: Z12.31 Encounter for screening mammogram for malignant neoplasm of breast (principal)
CPT/HCPCS: 77063; 77067

== ENCOUNTER → 2023-01-07 10:22 | Outpatient (CLI) | payer OTHER, SELFPAY ==
[2023-01-07 11:27] LABS: Basophils # 0.1 K/mm3 (0-0.2); Basophils % 1.5 % (0.1-2.0); Eosinophils # 0.2 K/mm3 (0.0-0.4); Eosinophils % 2.9 % (0.1-12.0); Hematocrit 42.8 % (37.0-47.0); Lymphocytes # 2.9 K/mm3 (0.7-4.5); Lymphocytes % 34.9 % (10-50); Mean Corpuscular HGB Conc 32.8 g/dL (31.8-35.4); Mean Corpuscular Hemoglobin 29.7 pg (27.0-31.2); Mean Corpuscular Volume 90.5 fl (81-99); Mean Platelet Volume 7.9 fl (7.4-10.4); Monocytes # 0.4 K/mm3 (0.1-1.0); Monocytes % 4.8 % (1.7-9.3); Neutrophils # 4.6 K/mm3 (1.8-7.8); Neutrophils % 55.9 % (37.0-80.0); Platelet Count 317 K/mm3 (142-424); Red Blood Count 4.73 M/mm3 (4.20-5.40); Red Cell Distribution Width 13.9 % (11.5-17.5); White Blood Count 8.3 K/mm3 (4.8-10.8)
[2023-01-07 12:13] LABS: Alanine Aminotransferase 23 U/L (12-78); Albumin Level 4.3 g/dl (3.5-5.0); Alkaline Phosphatase 114 U/L (38-126); Anion Gap 8.3 mEq/L (5-15); Aspartate Amino Transferase 28 U/L (14-36); Bilirubin,Direct 0.3 mg/dl (0.0-0.4); Bilirubin,Indirect 0.2 mg/dL (0.0-0.9); Bilirubin,Total 0.5 mg/dl (0.2-1.3); Bilirubin,Unconjugated 0.2 mg/dL (0.0-1.1); Blood Urea Nitrogen 15 mg/dl (7-17); Calcium 9.4 mg/dl (8.4-10.2); Carbon Dioxide 29 mmol/L (22.0-30.0); Chloride 105 mmol/L (98-107); Chol/HDL Ratio 4.3 (1-3.5); Cholesterol 142 mg/dl (140-200); Estimated Glomerular Filt Rate 88 ml/min (>60); GFR (African American) 107 ML/MIN (>60); Glucose 94 mg/dl (74-100); HDL Cholesterol 33 mg/dl (40-60); Magnesium 2.4 mg/dl (1.6-2.3); Potassium 4.3 mmoL/L (3.5-5.1); Sodium 138 mmol/L (136-145); Total Protein,Serum 7.1 g/dl (6.3-8.2); Triglycerides 178 mg/dl (30-150); VLDL Cholesterol 36 mg/dL (0-40)
[2023-01-07 12:14] LABS: Free T4 (Free Thyroxine) 1.07 ng/dl (0.78-2.19)
[2023-01-07 12:43] LABS: Thyroid Stimulating Hormone 0.73 uIU/mL (0.465-4.68)
== END ==
LOC: LAB 10:23
PROVIDERS: PCP Internal Medicine Adolescent Medicine; Visit Provider Physician Assistant
DX: R00.2 Palpitations (principal); R94.31 Abnormal electrocardiogram [ECG] [EKG]
CPT/HCPCS: 36415; 80048; 80061; 80076; 83735; 84439; 84443; 85025; 93270

== ENCOUNTER → 2023-01-14 10:02 | Outpatient (CLI) | payer OTHER, SELFPAY ==
--- NOTE | 2023-01-14 10:05 | CA_ITS ---
APPROVED REPORT EXAM: Comprehensive 2D, Doppler, and color-flow Echocardiogram Manager State: Geraldine Grider RVT Ht: 5 ft 6 in Wt: 218lbs BSA: 2.07 BP: 119/74 mmHg Indications: PALPS,ABN EKG,GERD,SURY,MR 2D Dimensions LVOT 2.11 cm (M/F) 1.5-2.5 LA Volume 29.60 mL LA Volume Index 14.23 mL/m2 (M/F) 16-34 M-Mode Dimensions RVDd 2.65 cm (0.9-2.6) LA Diam 3.50 cm (1.9-4.0) LVDd 4.65 cm (3.5-5.7) Ao Diam 3.01 cm (2.0-3.7) LVDs 2.97 cm (3.5-5.7) IVSd 1.00 cm (0.6-1.1) PWd 0.54 cm (0.6-1.1) EF (Teich) 65.70% FS 36.10% EDV (Teich) 99.80 mL TAPSE 2.26 (<1.7) ESV (Teich) 34.20 mL LV Diastology E Decel Time 173.00 (160-240 msec) E/A Ratio 1.4 MED E' 8.20 (< 7 cm/sec) E'/MED E' Ratio 10.21 (>14) LAT E' 10.00 (<10 cm/sec) E/LAT E' Ratio 8.37 (>14) Aortic Valve AO Peak GR. 4.10 mmHg Mitral Valve MV E Max Nir. 84.00 (40-130 cm/s) MV A Velocity 60.00 (40-130 cm/s) E/A Ratio 1.39 MV Decel. Time 173.00 (160-240 ms) MV PHT 51.00 ms Pulmonary Valve PV Peak Velocity 79.00 (50-150 cm/s) Tricuspid Valve TR P. Velocity 249.00 cm/s RAP Estimate 10.00 mmHg RVSP 34.80 mmHg Left Ventricle Left atrium is normal size left ventricle is normal size, estimated ejection fraction 55% with no regional wall motion abnormality, diastolic parameters are within normal range. Right Ventricle Right atrium and right ventricle are normal size and contractility. Aortic Valve Aortic valve is grossly normal there is no aortic stenosis aortic insufficiency. Mitral Valve Mitral valve is grossly normal, there is normal significant mitral regurgitation. Tricuspid Valve Tricuspid valve grossly normal, there is no significant tricuspid regurgitation. Pulmonic Valve Pulmonic valve is poorly visualized. Great Vessels Aortic root is normal size. Inferior vena cava is normal size with normal inspiratory collapse. Pericardium No significant pericardial effusion noted. Conclusion 1. Normal left ventricular size preserved left ventricular systolic function, estimated ejection fraction 55% with no regional wall motion abnormality, diastolic parameters are within normal range. 2. No significant pericardial effusion noted. 3. Inferior vena cava is normal size with normal inspiratory collapse. Electronically signed by : Vickey Kelley MD 01/15/2023 09:08:25
== END ==
LOC: RT 10:03
PROVIDERS: PCP Internal Medicine Adolescent Medicine; Visit Provider Physician Assistant
DX: R00.2 Palpitations (principal); R94.31 Abnormal electrocardiogram [ECG] [EKG]
CPT/HCPCS: 93306

== ENCOUNTER 2023-05-27 12:09 | Day surgery (SDC) | payer OTHER, SELFPAY ==
[2023-05-21 09:50] VITALS: BMI 35.3
[2023-05-27 12:37] VITALS: BP 163/108; PULSE 86; RESP 18; TEMP 36.3; O2SAT 99
--- NOTE | 2023-05-27 12:55 | P.PNANES_ITS ---
[facility] Disclaimer: The information contained in this section may have been updated after the patient was seen, as this information can be updated by other users. Medical History Abnormal EKG Anxiety Palpitations Symptomatic PVCs Surgical History History of bilateral tubal ligation History of cholecystectomy Family History Other Family history of diabetes mellitus type II Family history of stroke Social History Smoking Status: Never smoker alcohol intake: never substance use type: denies use current occupational status: retired Travel in the last 8 weeks: None household members: spouse and children housing: house lives independently: No marital status: education level: master's degree service: No current occupation: teacher caffeine: Yes special cynthia needs: No agree to transfusion: No do you feel safe at home: Yes victim of physical abuse: No victim of emotional abuse: No victim of sexual abuse: No would you like helpful sources: No [facility] Anesthesia Checklist Patient Identification Patient Identification: Arm Band and Verbal (Name & ) Structural Data Admitted From: Home Planned Operative Procedure/s: Colonoscopy Consent for Planned Operative Procedure(s) Verified: Yes NPO Status Verified Time NPO: 00:00 Additional verifications Anesthesia Reactions: No Hx Blood Transfusions: No Blood Transfusion Reaction: No Airway Assessment C-Spine Mobility Assessed: Yes TMJ Mobility Assessed: Yes Dentition: Good Dentition Neurological Assessment Level of Consciousness: Awake Hx Seizures: No Numbness or tingling in extremities: No Anesthesia Plan Anesthesia Risk discussed: Yes Anesthesia Plan: Verified ASA Class: II Anesthesia Type: MAC
[2023-05-27 13:25] VITALS: O2SAT 100
--- NOTE | 2023-05-27 13:46 | HMH.SCOPE ---
Procedure: Date: 05/27/23 Patient Date of :: 1970 Procedure Performed:: Colonoscopy Indications:: +Cologuard Performing Provider:: Andrew Young MD Referring Provider:: Sean Machado MD Sedation:: Propofol Procedure:: After placing the patient in the left lateral decubitus position, the colonoscopy was gently inserted into the rectum and under direct visualization advanced to the cecum which was identified by transillumination in the right lower quadrant, identification of the ileocecal valve, appendiceal orifice, and cecal strap. Color, texture, mucosa, and anatomy of the colon were carefully examined with the scope. Note: Visualization compromised due to poor quality of prep with abundant thick viscus stool remaining in the entire colon. Findings:: Anal canal: normal Rectum: normal Sigmoid colon: normal without polyps or inflammatory changes, much residual stool noted Descending colon: normal without polyps or inflammatory changes, much residual stool noted Splenic flexure: normal Transverse colon: normal without polyps or inflammatory changes, Much residual stool noted Hepatic flexure: normal Ascending colon: normal without polyps or inflammatory changes, much viscus residual stool noted Cecum: normal, much residual liquid stool noted Terminal ileum: not visualized Impression: Grossly normal colonoscopy Visualization compromised due to poor prep quality Recommendations:: Follow up examination in about FIVE years or so, sooner if clinically indicated in view of poor quality of colon prep. Two day prep recommended prior to next planned examination. Complications:: None Estimated blood obtained (mL): 0 Colonoscopy Component Colonoscopy Component Was a colonoscopy performed during today's procedure?: Yes Recommended follow up colonoscopy of at least 10 years?: No If no, follow up colonoscopy recommended in ___ years?: Five Reason for not recommending >/= 10 yr follow-up interval?: +Cologuard and extreme poor quality of colon prep
[2023-05-27 13:51] VITALS: BP 103/66; PULSE 89; RESP 18; TEMP 36.9; O2SAT 90
--- NOTE | 2023-05-27 13:53 | SUR.PHASEII ---
Oral airway in place when arrived to post-op.
[2023-05-27 14:01] VITALS: BP 104/66; PULSE 66; RESP 18; O2SAT 98
[2023-05-27 14:11] VITALS: BP 102/62; PULSE 74; RESP 18; O2SAT 98
[2023-05-27 14:28] VITALS: BP 108/68; PULSE 64; RESP 18; O2SAT 98
== END 2023-05-27 14:50 | disposition home or self-care (01) ==
PROVIDERS: PCP Internal Medicine Adolescent Medicine; Visit Provider Internal Medicine Gastroenterology
PROC: 0DJD8ZZ Inspection of Lower Intestinal Tract, Via Natural or Artificial Opening Endoscopic (ICD-10-PCS; CPT 45378; principal; 2023-05-27 11:30)
DX: R19.5 Other fecal abnormalities (principal); K59.04 Chronic idiopathic constipation; Z91.199 Patient's noncompliance with other medical treatment and regimen due to unspecified reason
CPT/HCPCS: 45378; J2704

== ENCOUNTER → 2023-06-17 16:01 | Outpatient (CLI) | payer OTHER, SELFPAY ==
--- NOTE | 2023-06-17 16:05 | XR_ITS ---
FINAL REPORT CLINICAL HISTORY: RIGHT ANTERIOR PAIN FINDINGS: Right knee Three views were obtained. There is no acute fracture or dislocation. The joint spaces appear normal. There is a moderate joint effusion. IMPRESSION: Moderate joint effusion. Reviewed, Interpreted and Dictated by Fernando Ware III, MD Transcribed by Karen Browning Authenticated and [facility]
== END ==
PROVIDERS: PCP Internal Medicine Adolescent Medicine; Visit Provider Nurse Practitioner Family
DX: M25.561 Pain in right knee (principal)
CPT/HCPCS: 73562

== ENCOUNTER → 2023-08-23 13:20 | Outpatient (CLI) | payer OTHER, SELFPAY ==
--- NOTE | 2023-08-23 13:20 | MM_ITS ---
PROCEDURE INFORMATION: Exam: MG Bilateral Screening 3D Mammography Exam date and time: 08/23/2023 1:12 PM Age: 53 years old Clinical indication: Screening examination TECHNIQUE: Imaging protocol: Bilateral Screening tomosynthesis and 2D mammography including computer-aided detection (CAD) when performed. COMPARISON: 1. MG MM DIG SCREENING MAMM BI W/CAD 08/18/2022 9:42 AM 2. MG MM DIG MAMM DX UNILAT RT CAD 04/11/2020 1:03 PM FINDINGS: MAMMOGRAPHY: Breast composition: There are scattered areas of fibroglandular density. Mass: None. Architectural distortion: None. Calcifications: No suspicious calcifications. Asymmetric density: None. Skin thickening: None. Axillary adenopathy: None. IMPRESSION: No mammographic evidence of malignancy. Annual screening is recommended unless otherwise clinically indicated. ASSESSMENT: BI-RADS Category 1: Negative
== END ==
PROVIDERS: PCP Internal Medicine Adolescent Medicine; Visit Provider Nurse Practitioner Obstetrics & Gynecology
DX: Z12.31 Encounter for screening mammogram for malignant neoplasm of breast (principal)
CPT/HCPCS: 77063; 77067

== ENCOUNTER 2024-01-31 10:47 | Outpatient (CLI) | payer OTHER, SELFPAY ==
[2024-01-31 11:34] LABS: Basophils # 0.1 K/mm3 (0-0.2); Basophils % 1.4 % (0.1-2.0); Eosinophils # 0.1 K/mm3 (0.0-0.4); Eosinophils % 2.5 % (0.1-12.0); Hematocrit 42.9 % (37.0-47.0); Hemoglobin 14.1 g/dL (12.2-16.2); Lymphocytes % 37.2 % (10-50); Mean Corpuscular HGB Conc 32.8 g/dL (31.8-35.4); Mean Corpuscular Hemoglobin 31.2 pg (27.0-31.2); Mean Platelet Volume 7.8 fl (7.4-10.4); Monocytes # 0.4 K/mm3 (0.1-1.0); Monocytes % 7.1 % (1.7-9.3); Neutrophils # 2.9 K/mm3 (1.8-7.8); Neutrophils % 51.8 % (37.0-80.0); Platelet Count 218 K/mm3 (142-424); Red Blood Count 4.52 M/mm3 (4.20-5.40); Red Cell Distribution Width 13.6 % (11.5-17.5); White Blood Count 5.5 K/mm3 (4.8-10.8)
[2024-01-31 11:57] LABS: Alanine Aminotransferase 39 U/L (12-78); Alkaline Phosphatase 117 U/L (38-126); Aspartate Amino Transferase 44 U/L (14-36); Bilirubin,Direct 0.2 mg/dl (0.0-0.4); Bilirubin,Indirect 0.2 mg/dL (0.0-0.9); Bilirubin,Total 0.4 mg/dl (0.2-1.3); Bilirubin,Unconjugated 0.2 mg/dL (0.0-1.1); Blood Urea Nitrogen 10 mg/dl (7-17); Calcium 9.7 mg/dl (8.4-10.2); Carbon Dioxide 28 mmol/L (22.0-30.0); Chloride 109 mmol/L (98-107); Chol/HDL Ratio 4.7 (1-3.5); Cholesterol 169 mg/dl (140-200); Estimated Glomerular Filt Rate 75 ml/min (>60); GFR (African American) 91 ML/MIN (>60); Glucose 102 mg/dl (74-100); HDL Cholesterol 36 mg/dl (40-60); Magnesium 2.3 mg/dl (1.6-2.3); Sodium 142 mmol/L (136-145); Total Protein,Serum 6.7 g/dl (6.3-8.2); Triglycerides 161 mg/dl (30-150); VLDL Cholesterol 32 mg/dL (0-40)
[2024-01-31 12:28] LABS: Thyroid Stimulating Hormone 1.25 uIU/mL (0.465-4.68)
== END 2024-01-31 23:59 ==
LOC: LAB 10:47
PROVIDERS: PCP Internal Medicine Adolescent Medicine; Visit Provider Nurse Practitioner Family
DX: R94.31 Abnormal electrocardiogram [ECG] [EKG] (principal); F41.9 Anxiety disorder, unspecified; R00.2 Palpitations; K21.9 Gastro-esophageal reflux disease without esophagitis; G47.33 Obstructive sleep apnea (adult) (pediatric); I34.0 Nonrheumatic mitral (valve) insufficiency; R42 Dizziness and giddiness
CPT/HCPCS: 36415; 80048; 80061; 80076; 83735; 84439; 84443; 85025

== ENCOUNTER 2024-03-18 16:43 | Emergency (ER) | payer OTHER, SELFPAY ==
[2024-03-18 16:44] VITALS: BP 130/85; PULSE 94; RESP 15; TEMP 36.9; O2SAT 99; BMI 35.2
--- NOTE | 2024-03-18 16:56 | XR_ITS ---
PROCEDURE INFORMATION: Exam: XR Chest Exam date and time: 03/18/2024 4:59 PM Age: 53 years old Clinical indication: Pain; Chest pressure; Additional info: Cp TECHNIQUE: Imaging protocol: Radiologic exam of the chest. Views: 1 view. COMPARISON: CR XR CHEST 2V 07/23/2021 6:49 PM FINDINGS: Lungs: Stable small calcified nodule left mid lung over the 3rd anterior and 6th posterior ribs. Bandlike density compatible with fibro atelectatic changes left lung base redemonstrated. Lungs are otherwise clear. Pleural spaces: Unremarkable. No pleural effusion. No pneumothorax. Heart/Mediastinum: Unremarkable. No cardiomegaly. Bones/joints: Unremarkable. IMPRESSION: Stable chest x-ray with no acute disease.
--- NOTE | 2024-03-18 16:56 | ECG_ITS ---
APPROVED REPORT Exam: Resting ECG HR:85 bpm ECG Measurements Heart Rate 85 AXES OH 167 P 60 QRSd 89 QRS 37 QT 384 T 43 QTc 427 Conclusion SINUS RHYTHM NORMAL ECG UNCONFIRMED REPORT Electronically signed by : LEE TAVERAS, 03/25/2024 06:03:44
--- NOTE | 2024-03-18 16:57 | ED_ITS ---
Discharge Plan Disposition Patient Disposition: Home, Self-Care Prescriptions Prescriptions: New methocarbamol 500 mg tablet 1,000 mg PO TID PRN (Reason: back pain and spasm) Qty: 24 0RF lidocaine 5 % adhesive patch,medicated 1 patch topical DAILY Qty: 15 0RF Rx Instructions: leave on most painful area for up to 12 hrs No Action duloxetine 60 mg capsule,delayed release(DR/EC) 60 mg PO DAILY Patient Comments: TAKE ONE CAPSULE BY MOUTH EVERY DAY propranolol 40 mg tablet 20 mg PO HS 90 Days Qty: 45 2RF alprazolam [Xanax] 1 mg tablet 1 mg PO QHS Livalo 4 mg tablet 4 mg PO DAILY aspirin [Adult Low Dose Aspirin] 81 mg tablet,delayed release (DR/EC) 81 mg PO DAILY Referrals Follow up/Referrals: Sean Machado MD [Primary Care Provider] - See instructions Activity Restrictions/Add. Instructions Additional Instructions/Restrictions: At this time it was felt you are safe to be discharged home. If new or worsening symptoms please do not hesitate to return the emergency department. If symptoms persist please follow-up with your family doctor as you are able. Your back pain may take weeks to heal, please take your medications as prescribed and follow-up with Dr. Machado in the next week for possible physical therapy referral and keep an eye on how here back pain and chest discomfort is going. Clinical Impressions Clinical Impression: Lumbago, Chest discomfort Instructions Patient Instructions: DI for Low Back Pain Discharge ED Provider: Jorge L Milligan General Adult HPI General Chief complaint: Back Pain/Injury Stated complaint: Back pain R/T bending over Time Seen by Provider: 03/18/24 16:43 History of Present Illness HPI narrative: Patient is a 53-year-old female with no pertinent past medical history who presents emergency department for evaluation of back pain. Patient was cleaning her bathroom today when she bent over and after rising up had bilateral paraspinal back pain radiating up her back from her lumbar region. She had a short episode of chest discomfort which she attributed to arthritis . It was not tearing, not severe and did not radiate through to her back. No current chest pain, no midline back pain, no urinary or bowel incontinence. No other acute complaints at this time. Related Data Home Medications Medication Instructions Recorded Confirmed alprazolam 1 mg tablet (Xanax) 1 mg PO QHS Anxiety 12/13/19 01/31/24 duloxetine 60 mg capsule,delayed 60 mg PO DAILY . 04/23/21 01/31/24 release pitavastatin calcium 4 mg tablet 4 mg PO DAILY . 08/27/22 01/31/24 (Livalo) aspirin 81 mg tablet,delayed 81 mg PO DAILY Supplement 05/27/23 01/31/24 release (Adult Low Dose Aspirin) Previous Rx's Medication Instructions Recorded propranolol 40 mg tablet 20 mg (1/2 x 40 mg) PO HS 90 days 08/02/23 #45 tabs lidocaine 5 % topical patch 1 patch topical DAILY #15 ea 03/18/24 methocarbamol 500 mg tablet 1,000 mg (2 x 500 mg) PO TID PRN 03/18/24 back pain and spasm #24 tabs Allergies Allergy/AdvReac Type Severity Reaction Status Date / Time No Known Allergies Allergy Verified 01/31/24 09:59 [facility] Disclaimer: The information contained in this section may have been updated after the patient was seen, as this information can be updated by other users. Medical History (Updated 03/18/24 @ 17:44 by Jorge L Milligan MD) Hyperlipidemia Dizziness Palpitations Anxiety Abnormal EKG Symptomatic PVCs Surgical History History of bilateral tubal ligation History of cholecystectomy Family History Other Family history of diabetes mellitus type II Family history of stroke Social History Smoking Status: Never smoker alcohol intake: never substance use type: denies use current occupational status: retired Travel in the last 8 weeks: None household members: spouse and children housing: house lives independently: No marital status: education level: master's degree service: No current occupation: teacher caffeine: Yes special cynthia needs: No agree to transfusion: No do you feel safe at home: Yes victim of physical abuse: No victim of emotional abuse: No victim of sexual abuse: No would you like helpful sources: No ROS Obtained: Yes Systems reviewed as appropriate & no additional complaints except as documented Physical Exam General General appearance: alert and in no apparent distress Head Head exam: atraumatic and normocephalic Eye Eye exam: Present PERRL ENT ENT exam: Present mucous membranes moist Neck Neck exam: Present normal inspection Chest Chest inspection: Present normal inspection and symmetric chest wall rise Respiratory Respiratory exam: Present normal lung sounds bilaterally; Absent respiratory distress Cardiovascular Cardiovascular exam: Present regular rate and normal rhythm Abdominal Exam Abdominal exam: Present soft; Absent tenderness Extremities Exam Extremities exam: Present normal inspection Back Exam Back exam: Present tenderness (Bilateral paraspinal, no midline tenderness) Neurological Exam Neurological exam: Present alert; Absent motor sensory deficit Psychiatric Psychiatric exam: Present normal affect Skin Skin exam: Present warm and dry Medical Decision Making Eulogio Inquiry Pt receiving controlled substance: No Vital Signs: 03/18/24 16:44 Temperature 98.5 F Temperature Source Oral Pulse Rate [Left] 94 H Respiratory Rate 15 Blood Pressure [Right Arm] 130/85 Blood Pressure Mean [Right Arm] 100 Blood Pressure Source [Right Arm] Automatic Cuff Blood Pressure Position [Right Arm] Sitting 02 Sat by Pulse Oximetry 99 Oxygen Delivery Method Room Air Lab Data Lab Results 03/18/24 16:55: WBC 9.0, RBC 4.90, Hgb 14.6, Hct 45.6, MCV 93.2, MCH 29.9, MCHC 32.1, RDW 14.3, Plt Count 244, MPV 7.3 L, Neut % (Auto) 55.8, Lymph % (Auto) 36.1, [place] % (Auto) 4.2, Eos % (Auto) 2.4, Baso % (Auto) 1.7, Neut # (Auto) 5.0, Lymph # (Auto) 3.2, [place] # (Auto) 0.4, Eos # (Auto) 0.2, Baso # (Auto) 0.2, Sodium 140, Potassium 3.8, Chloride 105, Carbon Dioxide 28, Anion Gap 10.8, BUN 11, Creatinine 0.90, Estimated Creat Clear 114, Estimated GFR 66, Est GFR ( Amer) 80, Glucose 115 H, Calcium 9.7, Total Bilirubin 0.5, AST 31, ALT 29, Alkaline Phosphatase 142 H, Troponin I < 0.01, Total Protein 7.9, Albumin 4.4, Globulin 3.5 H, Albumin/Globulin Ratio 1.3 03/18/24 16:55 03/18/24 16:55 Orders (Tests/Meds): ED MEDICATIONS Discontinued Medications Generic Name Dose Route Start Last Admin Trade Name Freq PRN Reason Stop Dose Admin Acetaminophen 1,000 mg 03/18/24 16:56 03/18/24 17:02 Acetaminophen 500mg Tab PO 03/18/24 16:57 1,000 mg ONCE ONE Administration Ketorolac Tromethamine 30 mg 03/18/24 16:56 03/18/24 17:02 Ketorolac 30mg/Ml Vial IV 03/18/24 16:57 30 mg ONCE ONE Administration Methocarbamol 1,000 mg 03/18/24 16:57 03/18/24 17:02 Methocarbamol 500mg Tablet PO 03/18/24 16:58 1,000 mg ONCE ONE Administration ORDERS Category Date Time Status CXR --portable [XR chest portable] Stat Exams 03/18/24 16:56 Taken CBC w/Auto Diff [Complete Blood Count Auto Diff] Stat Lab 03/18/24 16:55 Completed CMP [Comprehensive Metabolic Panel] Stat Lab 03/18/24 16:55 Completed Trop I [Troponin I] Stat Lab 03/18/24 16:55 Completed Troponin I Q3H Lab 03/18/24 20:00 Ordered Troponin I Q3H Lab 03/18/24 23:00 Ordered EKG Request [ECG Request] Stat Y 03/18/24 16:56 Ordered ECG Data Tracing #1: Independently interpreted by me, rate is 85, rhythm is regular, axis is normal, no ST elevation in anatomical contiguous leads, QTc 427. HEART Score History (anamnesis): Slightly suspicious ECG: Normal Age: 45-65 years Risk factors: 1-2 risk factors Troponin: </= normal limit HEART Score: 2 Medical Decision Narrative: In summary patient is a 53-year-old female past medical history described above who presents emergency department for evaluation of back pain and transient chest discomfort. Patient is hemodynamically stable nontoxic-appearing upon arrival, afebrile. Differential diagnosis includes ACS, noncardiac chest pain, lumbar ago, among others. Will expect a chest pain workup will be conducted with hematologic labs, chest x-ray, EKG, troponin. No current chest pain, chest pain did not radiate through to her back and well-appearing with a nonfocal exam with the exception of paraspinal tenderness no concern for aortic dissection at this time. With expected back pain patient has no red flag symptoms that would warrant imaging at this time patient be treated empirically multimodal pain control. Workup reviewed by me, hematologic labs are nonactionable, no KARSON or critical electrolyte abnormality, initial troponin undetectably low. EKG nonischemic. Upon repeat evaluation patient had resolving back pain. Given this patient is appropriate for outpatient management at this time will be discharged with a course of lidocaine patches and Robaxin and was given return precautions. Critical Care Critical Care Time Critical Care Time: No
[2024-03-18] MEDS: KETOROLAC 30MG/ML VIAL 30 MG IV (17:02)
[2024-03-18] MEDS: ACETAMINOPHEN 500MG TAB 1000 MG PO (17:02)
[2024-03-18] MEDS: METHOCARBAMOL 500MG TABLET 1000 MG PO (17:02)
[2024-03-18 17:06] LABS: Basophils # 0.2 K/mm3 (0-0.2); Basophils % 1.7 % (0.1-2.0); Eosinophils # 0.2 K/mm3 (0.0-0.4); Eosinophils % 2.4 % (0.1-12.0); Hematocrit 45.6 % (37.0-47.0); Hemoglobin 14.6 g/dL (12.2-16.2); Lymphocytes # 3.2 K/mm3 (0.7-4.5); Lymphocytes % 36.1 % (10-50); Mean Corpuscular HGB Conc 32.1 g/dL (31.8-35.4); Mean Corpuscular Hemoglobin 29.9 pg (27.0-31.2); Mean Corpuscular Volume 93.2 fl (81-99); Mean Platelet Volume 7.3 fl (7.4-10.4); Monocytes # 0.4 K/mm3 (0.1-1.0); Monocytes % 4.2 % (1.7-9.3); Neutrophils % 55.8 % (37.0-80.0); Platelet Count 244 K/mm3 (142-424); Red Cell Distribution Width 14.3 % (11.5-17.5)
[2024-03-18 17:10] LABS: Chloride 105 mmol/L (98-107); Potassium 3.8 mmoL/L (3.5-5.1); Sodium 140 mmol/L (136-145)
[2024-03-18 17:13] LABS: Alanine Aminotransferase 29 U/L (12-78); Albumin Level 4.4 g/dl (3.5-5.0); Albumin/Globulin Ratio 1.3 (1.1-1.8); Alkaline Phosphatase 142 U/L (38-126); Anion Gap 10.8 mEq/L (5-15); Aspartate Amino Transferase 31 U/L (14-36); Bilirubin,Total 0.5 mg/dl (0.2-1.3); Blood Urea Nitrogen 11 mg/dl (7-17); Carbon Dioxide 28 mmol/L (22.0-30.0); Creatinine Clearance Estimated 114 mL/min (50-200); Estimated Glomerular Filt Rate 66 ml/min (>60); GFR (African American) 80 ML/MIN (>60); Globulin 3.5 g/dL (1.3-3.2); Total Protein,Serum 7.9 g/dl (6.3-8.2)
[2024-03-18 17:14] LABS: Calcium 9.7 mg/dl (8.4-10.2); Glucose 115 mg/dl (74-100)
[2024-03-18 17:25] LABS: Troponin I < 0.01 ng/ml (0.00-0.034)
--- NOTE | 2024-03-18 18:12 | PC.NURSE ---
Dr. Milligan at beside
[2024-03-18 18:15] VITALS: BP 126/76; PULSE 70; RESP 18; TEMP 36.9; O2SAT 97
== END 2024-03-18 18:23 | disposition home or self-care (01) ==
PROVIDERS: Emergency Provider Emergency Medicine; PCP Internal Medicine Adolescent Medicine
DX: M54.59 Other low back pain (principal); R07.89 Other chest pain; E78.5 Hyperlipidemia, unspecified; F41.9 Anxiety disorder, unspecified
CPT/HCPCS: 71045; 80053; 84484; 85025; 93005; 96374; 99284

== ENCOUNTER 2025-05-31 13:16 | Outpatient (CLI) | payer BC, SELFPAY ==
--- OUTSIDE RECORDS SUMMARY | 2025-02-10 17:30 | XMS_ITS ---
Author Organization [facility] Address [address] [place] [address] Care Team Providers Care Douper Name Role Phone Sean Machado Primary Care Provider [phone] Kasie Bird Unavailable [phone] Migration, Provider Unavailable Unavailable REASON FOR VISIT [facility] To [facility] Conversion Encounter Medications Medication SIG (Take, Route, Frequency, Duration) Notes Start Date End Date Status buPROPion HCl ER (XL) 150 MG 1 tab(s) orally every 24 hours; Duration: 90 days Active Propranolol HCl 40 MG 1 tab(s) orally at bedtime; Duration: 90 days 04/06/2024 Active Vitamin C 500 MG 1 tab(s) orally once a day; Duration: 30 day(s) Active ALPRAZolam 1 MG 1 tab orally Once at bedtime; Duration: 30 days 12/28/2024 Active CPAP MACHINE WITH ADULT SETUP DIRECTED *Please review for potential replacement for e-prescription and drug interaction check* 01/02/2016 Active Amoxicillin 500 MG 1 cap(s) orally 2 times a day; Duration: 10 days 02/06/2025 Active Livalo 4 MG 1 tab(s) orally once a day; Duration: 90 days Active DULoxetine HCl 60 MG 1 cap(s) orally once a day; Duration: 90 days Active Encounters Encounter Location Date Provider Diagnosis [facility] [address] [place] [address] 02/10/2025 Provider Migration Plan Of Treatment Medication Medication Name Sig Start Date Stop Date Notes Amoxicillin 500 MG 1 cap(s) orally 2 ti mes a day; Duration: 10 days 02/06/2025 Progress Notes * Marcia JALLOH ADOB: 1 (54 yo F)Acc No.[id number]:02/10/2025 Patient: Marcia JESUS Provider: Lamont Dela Cruz :1970 A ge:54 Y S ex:Female Date:02/10/2025 Address:[address], [id number] Pcp:Sean Machado Subjective: * Chief Complaints: * 1 . [facility] Conversion Encounter. * Medical History: * Medications: T aking CPAP MACHINE WITH ADULT SETUP DIRECTED , Notes to Pharmacist: *Please review for potential replacement for e-prescription and drug interaction check*, Taking Vitamin C 500 MG Tablet 1 tab(s) orally once a day , Taking Propranolol HCl 40 MG Tablet 1 tab(s) orally at bedtime , Taking buPROPion HCl ER (XL) 150 MG Tablet Extended Release 24 Hour 1 tab(s) orally every 24 hours , Taking DULoxetine HCl 60 MG Capsule Delayed Release Particles 1 cap(s) orally once a day , Taking Livalo 4 MG Tablet 1 tab(s) orally once a day , Taking ALPRAZolam 1 MG Tablet 1 tab orally Once at bedtime Objective: * Vitals: Assessment: Plan: * Treatment: * * Electronic signature of Prov ider Migration on 05/31/2025 at 01:21 PM EDT Sign off status: Pending * Provider: Lamont madden Migration Date: 02/10/2025 Generated for Aydee layton/Ana/Brit on: 05/31/2025 01:21 PM EDT
--- OUTSIDE RECORDS SUMMARY | 2025-04-16 10:15 | XMS_ITS ---
Author Organization [facility] Address [address] [facility] [address] [place] [address] Care Team Providers Care Auto Headlight Mechanic Name Role Phone Sean Machado Primary Care Provider Kasie Bird [phone] Allergies No Known Allergies REASON FOR VISIT Sick for over a week. Cough, congestion, fever one night. Medications Medication SIG (Take, Route, Frequency, Duration) Notes Start Date End Date Status DULoxetine HCl 60 MG 1 cap(s) orally once a day; Duration: 90 days Active buPROPion HCl ER (XL) 150 MG 1 tab(s) orally every 24 hours; Duration: 90 days Active Propranolol HCl 40 MG 1 tab(s) orally at bedtime; Duration: 90 days 04/06/2024 Active Promethazine-DM 6.25-15 MG/5ML 5 mL orally every 6 hours; Duration: 10 days 04/16/2025 Active Livalo 4 MG 1 tab(s) orally once a day; Duration: 90 days Active CPAP MACHINE WITH ADULT SETUP DIRECTED *Please review for potential replacement for e-prescription and drug interaction check* 01/02/2016 Active Doxycycline Hyclate 100 MG One tab PO twice daily; Duration: 7 days 04/16/2025 Active Vitamin C 500 MG 1 tab(s) orally once a day; Duration: 30 day(s) Active ALPRAZolam 1 MG 1 tab orally Twice a day; Duration: 30 days As needed 04/03/2025 Active Vital Signs Temperature 97.7 degrees Fahrenheit 04/16/20 25 Blood pressure systolic 118 mm Hg 04/16/20 25 Blood pressure diastolic 80 mm Hg 025 Heart Rate 88 /min 04/16/2025 Height 5 ft 6 in in 04/16/2025 Weight 229 lbs 04/16/2025 BMI 36.96 kg/m2 04/16/2025 Encounters Encounter Location Date Provider Diagnosis [facility] [address] [place], [place] [address] 04/16/2025 Sean Machado Acute bronchitis, unspecified organism J20.9 and Acute cough R05.1 Assessments Encounter Date Diagnosis (ICD Code) Assessment Notes Treatment Notes Treatment Clinical Notes Section Notes 04/16/2025 Acute bronchitis, unspecified organism (ICD-10 - J20.9) Discussed the etiology and expected course of bronchitis. Discussed the rationale for antibiotic and the importance of completing the prescription as prescribed. Continue supportive care with PRN antipyretics, OTC cough/cold meds, nasal saline rinses/Neti pot with distilled water, salt water gargles, cough drops, and humidifier. Encourage PO hydration. Discussed the signs and symptoms of worsening infection/respira tory distress that may indicate need for reassessment in clinic/ED. Keep previously scheduled physical exam or f/u sooner PRN. Patient/family voices understanding and agree to this plan. 04/16/2025 Acute cough (ICD-10 - R05.1) Plan Of Treatment Medication Medication Name Sig Start Date Stop Date Notes Promethazine-DM 6.25-15 MG/5ML 5 mL oral ly every 6 hours; Duration: 10 days 04/16/2025 Doxycycline Hyclate 100 MG One tab PO tw ice daily; Duration: 7 days 04/16/2025 Treatment Notes Assessment Notes Acute bronchitis, unspecified organism D iscussed the etiology and expected course of bronchitis. Discussed the rationale for antibiotic and the importance of completing the prescription as prescribed. Continue supportive care with PRN antipyretics, OTC cough/cold meds, nasal saline rinses/Neti pot with distilled water, salt water gargles, cough drops, and humidifier. Encourage PO hydration. Discussed the signs and symptoms of worsening infection/respiratory distress that may indicate need for reassessment in clinic/ED. Keep previously scheduled physical exam or f/u sooner PRN. Patient/family voices understanding and agree to this plan. Next Appt Details Follow Up: prn, Reason: Progress Notes * Marcia JALLOH ADOB: 1 (54 yo F)Acc No.[id number]:04/16/2025 Progress Notes Patient: Marcia JESUS Provider: Gulshan Machado MD :1970 A ge:54 Y S ex:Female Date:04/16/2025 Address:[place] [address], [facility], [id number] Subjective: * Chief Complaints: * 1 . Sick for over a week. Cough, congestion, fever one night.. * HPI: g en: History as above, 1 day of fever after 5 days of cough, rattling yesterday, occasionally produces green mucus. * Medical History: A nxiety, Palpitations, Vit b12 def, Hyperlipidemia, Sleep Apnea, Normal Echo 01/28 - EF 55%, Normal mammogram 06/2022, Positive Cologuard 04/2023 but normal colonoscopy 05/30. * Medications: T aking CPAP MACHINE WITH [...] ALPRAZolam 1 MG Tablet 1 tab orally Twice a day As needed, Discontinued Amoxicillin 500 MG Capsule 1 cap(s) orally 2 times a day , Medication List reviewed and reconciled with the patient * Allergies: N .K.D.A. Objective: * Vitals: N urse: be, Pain: 0, Temp: 97.7, RR: 16, HR: 88, BP: 118/80, Ht: 5 ft 6 in, Wt: 229, BMI:36.96. * Examination: G eneral Examination: General P leasant and Cooperative, NAD on RA,. ? E NT/Respiratory: General Appearance : w ell nourished and hydrated, alert.? Heart : R RR, normal S1 S2, no murmurs. Lungs : b ilateral coarse expiratory wheezes, occasional crackles. Extremities : n o edema. Assessment: * Assessment: 1. A cute bronchitis, unspecified organism - J20.9 (Primary) 2 . A cute cough - R05.1 Plan: * Treatment: 2. A cute cough Start Promethazine-DM Syrup, 6.25-15 MG/5ML, 5 mL, orally, every 6 hours, 10 days, 200 ML, Refills 1. * Follow Up: p rn * * Sign off status: Completed true * Provider: Gulshan Machado MD Date: 0 04/16/2025 Generated for Printi ng/Farobg/eTransmitting on: 0 05/31/2025 01:21 PM EDT History and Physical Notes * HPI (History of Present Illness) Category Sub-Category Detail Notes Category Not es gen History as abov e, 1 day of fever after 5 days of cough, rattling yesterday, occasionally produces green mucus. Examination Category Sub-Category Detail Notes Category Not es ENT/Respiratory Heart : RRR, normal S1 S2, no mur murs Lungs : bilateral coarse exp iratory wheezes, occasional crackles Extremities : no edema General Appearance : well nourished and hydrated, alert General Examination General Pleasant and Cooperat reillyISAIAH perry on RA,
--- OUTSIDE RECORDS SUMMARY | 2025-05-31 13:21 | XMS_ITS | Patient Health Record ---
Author Organization [facility] Address [address] [place] [address] Care Team Providers Care Facer Operator Name Role Phone Sean Machado Primary Care Provider Kasie Bird Unavailable [phone] Poppy Olmedo Unavailable [phone] Migration, Provider Unavailable Unavailable Allergies No Known Allergies Results Component Value Reference Range Notes Rapid Strep Reviewed date:02/05/2025 05:34:23 PM Interpretation:Negative Performing Lab: Notes/Report: Negative Rapid Strep Reviewed date:09/30/2024 12:01:39 PM Interpretation:Positive Performing Lab: Notes/Report: Positive Rapid Covid/Flu A-B Combo Reviewed date:02/05/2025 05:35:26 PM Interpretation: Performing Lab: Notes/Report: Rapid Covid neg Flu A neg Flu B neg Reason For Referral Reason Dermatology in [facility] or [place], first available, skin check, removal or skin tags, nevus Diagnosis 1 Skin lesion (L98.9) Referral Organization [facility] MATTHEW MONTENEGRO Referring Provider First Name Poppy Referring Provider Last Name Honorio Referring Provider Speciality Family Pra ctice Referred Provider Specialty Dermatology General Notes Kayce Segura 2023 11:47:28 AM >Faxing referral to [facility] in [place]. Colton Nickie 08/29/2024 08:41:14 AM >no longer [facility] new [facility]/29/[facility]24 08:41:16 AM >, Kayce Segura 08/29/2024 08:41:17 AM >, Kayce Segura 08/29/2024 08:41:18 AM >, Kayce Segura 08/29/2024 08:41:19 AM > Referral Priority Routine Medications Medication SIG (Take, Route, Frequency, Duration) Notes Start Date End Date Status CPAP MACHINE WITH ADULT SETUP DIRECTED *Please review for potential replacement for e-prescription and drug interaction check* 01/02/2016 Active Doxycycline Hyclate 100 MG One tab PO twice daily; Duration: 7 days 04/16/2025 Active DULoxetine HCl 60 MG 1 cap(s) [...] Duration: 30 days As needed 04/03/2025 Active Promethazine-DM 6.25-15 MG/5ML 5 mL orally every 6 hours; Duration: 10 days 04/16/2025 Active Livalo 4 MG 1 tab(s) orally once a day; Duration: 90 days Active Immunizations Vaccine Route Administration Date Status Comme nts SHINGRIX IM Intramuscular 04/19/2023 Administered SHINGRIX IM Intramuscular 05/29/2024 Administered FLUZONE 6MO - OLDER IM Intramuscular 08/02/2023 Administer ed Flublok IM Intramuscular 07/29/2020 Administered Flublok IM Intramuscular 08/16/2021 Administered Flublok IM Intramuscular 08/09/2024 Administered Boostrix IM Intramuscular 07/07/2021 Administered Boostrix IM Intramuscular 04/19/2023 Administered Adacel (Tdap) IM Intramuscular 06/06/2012 Administered Problems Problem Type SNOMED Code ICD Code Onset Dates Problem Status W/U Status Risk Notes Problem Generalized anxiety disorder (68067074) Generalized anxiety disorder (F41.1) Active confirmed Problem Primary insomnia (3595897) Primary insomnia (F51.01) Active confirmed Problem Fibromyalgia (666376974) Fibromyalgia (M79.7) Active confirmed Problem Obese class I (finding) (922855589912811) Obesity (BMI 30.0-34.9) (E66.9) Active confirmed Problem Mixed anxiety and depressive disorder (731302993) Depression with anxiety (F41.8) Active confirmed Problem Hyperlipidemia (58189441) Hyperlipemia, idiopathic familial (E78.5) Active confirmed Problem Vitamin B12 deficiency (non anemic) (17690695) B12 deficiency (E53.8) Active confirmed Problem Obstructive sleep apnea (01784952) Obstructive sleep apnea (G47.33) Active confirmed Problem Left rotator cuff syndrome (969388061023751) Rotator cuff syndrome of left shoulder (M75.102) Active confirmed Problem 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) PVC (premature ventricular contraction) (I49.3) Active confirmed Problem History of palpitations (836630260) History of palpitations (Z87.898) Active confirmed Problem Chronic maxillary sinusitis (20339020) Chronic sinusitis of both maxillary sinuses (J32.0) Active confirmed Vital Signs Heart Rate 88 /min 04/16/2025 Temperature 97.7 degrees Fahrenheit 04/16/2025 Blood pressure diastolic 80 mm Hg 04/16/2025 Height 5 ft 6 in in 04/16/2025 Blood pressure systolic 118 mm Hg 04/16/2025 Weight 229 lbs 04/16/2025 BMI 36.96 kg/m2 04/16/2025 Encounters Encounter Location Date Provider Diagnosis [facility] [address] [place] [address] 02/10/2025 Provider Migration [facility] [address] [place] [address] 08/09/2024 Sean Machado Immunization(s) administered Z23 [facility] [address] [place] [address] 08/22/2024 Poppy McNees Skin lesion L98.9 [facility] [address] [place], [place] [address] 09/30/2024 Sean Machado Sore throat J02.9 an d Strep throat J02.0 [facility] [address] [place] [address] 02/05/2025 Kasie Bird Sore throat J02.9 ; Acute URI J06.9 and Non-recurrent acute serous otitis media of both ears H65.03 [facility] [address] [facility] [address] [place] [address] 04/16/2025 Seaneli Machado Acute bronchitis, unspecified organism J20.9 and Acute cough R05.1 [facility] [address] [place] [address] 05/31/2024 Sean Besson [facility] [address] [facility] [address] [place] [address] 05/31/2024 Sean Besson [facility] [address] [place] [address] 07/20/2024 Sean Besson [facility] [address] [facility] [address] [place] [address] 2024 Sean Besson [facility] [address] [address] 10/18/2024 Sean Machado Strep throat J02.0 [facility] [address] [address] 02/06/2025 Kasie Bird [facility] [address] [address] 04/03/2025 Sean Machado Depression with anxiety F41.8 [facility] [address] [facility] [address] [place] [address] 05/23/2025 Kasie Bird Assessments Encounter Date Diagnosis (ICD Code) Assessment Notes Treatment Notes Treatment Clinical Notes Section Notes 08/09/2024 Immunization(s) administered (ICD-10 - Z23) 08/22/2024 Skin lesion (ICD-10 - L98.9) Refer to dermatology for overall skin check and lesion removal 09/30/2024 Sore throat (ICD-10 - J02.9) 09/30/2024 Strep throat (ICD-10 - J02.0) Prescribed antibiotic as stated above and stressed importance of finishing complete course of antibiotic. Do not let anyone drink after the patient. Throw away toothbrush after abx complete. Discussed etiology and expected course of illness. Continue supportive care with PRN antipyretics. Encourage PO hydration. May return to school once afebrile for 24hrs and received antibiotic for a full 24 hours. Keep previously scheduled WCC or f/u sooner PRN. 10/18/2024 Strep throat (ICD-10 - J02.0) 02/05/2025 Sore throat (ICD-10 - J02.9) 02/05/2025 Acute URI (ICD-10 - J06.9) Discussed the etiology and expected course of a viral URI. Discussed supportive care and symptom management with PO fluids, Antipyretics, and antihistamines. Discussed the rational for not prescribing antibiotics for viral infection. Discussed the signs and symptoms of worsening condition and need for reassessment in clinic or ED. 04/03/2025 Depression with anxiety (ICD-10 - F41.8) 04/16/2025 Acute bronchitis, unspecified organism (ICD-10 - J20.9) Discussed the etiology and expected course of bronchitis. Discussed the rationale for antibiotic and the importance of completing the prescription as prescribed. Continue supportive care with PRN antipyretics, OTC cough/cold meds, nasal saline rinses/Neti pot with distilled water, salt water gargles, cough drops, and humidifier. Encourage PO hydration. Discussed the signs and symptoms of worsening infection/respir atory distress that may indicate need for reassessment in clinic/ED. Keep previously scheduled physical exam or f/u sooner PRN. Patient/family voices understanding and agree to this plan. 04/16/2025 Acute cough (ICD-10 - R05.1) 02/05/2025 Non-recurrent acute serous otitis media of both ears (ICD-10 - H65.03) Rec resume antihistamine and flonase routinely, return precautions reviewed Plan Of Treatment Pending Test Test Name Order Date MRI : Head 08/13/2020 MRI : Shoulder, Left 04/28/2017 Physical Therapy 08/16/2020 Mammogram : Bilateral 01/01/2011 H-CBC with AUTO DIFF 01/02/2016 H-THROAT CULTURE 01/21/2016 H-VITAMIN B12 01/02/2016 H-VITAMIN B12 04/28/2017 H-CMP 07/01/2011 H-CMP 09/08/2010 H-CMP 01/02/2016 H-LIPID PANEL 01/02/2016 H-LIPID PANEL 09/08/2010 H-LIPID PANEL 07/01/2011 H-LIPID PANEL 04/28/2017 H- SERUM QUAL 07/01/2011 Rapid Flu, B 02/05/2011 M-Hemoglobin A1C 01/27/2021 M-Vitamin B12 01/25/2021 Rapid Covid Antigen 10/21/2020 Insurance Providers Payer Name Payer Address Payer Phone Subscriber Number Group Number Insured Name Patient Relationship to Insured Coverage Start Date Coverage End Date [facility] [address] [place] [address] [id number] Marcia Law Self - patient is the insured Medications Administered Medication Instructions Date of Administration Dosage Notes Bicillin CR 02/16/2013 Bicillin CR 10/23/2013 Cyanocobalamin/B-12 Pt's Own Medication 09/29/2014 Cyanocobalamin/B-12 Pt's Own Medication 10/17/2014 1 mL Cyanocobalamin/B-12 Pt's Own Medication 10/29/2014 Cyanocobalamin/B-12 Pt's Own Medication 11/15/2014 1 mL Cyanocobalamin/B-12 Pt's Own Medication 12/03/2014 1 mL Cyanocobalamin/B-12 Pt's Own Medication 01/28/2015 1 mL Cyanocobalamin/B-12 Pt's Own Medication 02/13/2015 1 mL Kenalog 40mg 12/18/2017 40 mg Triamcinolone Acetonide 40mg Injection 08/15/2018 1 mL Triamcinolone Acetonide 40mg Injection 07/27/2019 1 mL Triamcinolone Acetonide 40mg Injection 08/30/2019 1 mL Triamcinolone Acetonide 40mg Injection 11/14/2019 1 mL Triamcinolone Acetonide 40mg Injection 11/24/2019 1 mL Kenalog 08/26/2015 1 mL Kenalog 11/15/2015 1 mL Kenalog 01/21/2016 1 mL Kenalog 01/02/2017 1 mL Medical (General) History Medical History History ICD Code Anxiety palpitations vit b12 def hyperlipidemia Sleep Apnea Normal Echo 01/28 - EF 55% Normal mammogram 06/2022 Positive Cologuard 04/2023 but normal col onoscopy 05/30 Surgical History Surgery Date(Month/Year) cholecystectomy 2008 essure control implant 2012
--- OUTSIDE RECORDS SUMMARY | 2025-05-31 13:22 | XMS_ITS | Data Portability ---
Author Organization [facility] Address [address] [facility] [address] [place] [address] Assessment No assessment recorded. Plan of Treatment Reminders Order Date Submit Date Provider Last Modified By Organization Details Last Modified Time Details Appointments None recorded. Lab None recorded. Referral None recorded. Procedures None recorded. Surgeries None recorded. Imaging None recorded. Medication Orders clindamycin 1 % topical gel 2024 025 [facility], [address] [place] [address], [phone], 5 16:42:25 tretinoin 0.05 % topical cream [email or web address] [facility], [address] [place] [address] [facility] [place] [id number], 08:26:21 Patient TargetsNo targets recorded. Patient InstructionsNo instructions recorded. Reason for Referral None Reported. Medical Equipment None Reported. Allergies No known drug allergies Medications Name Sig Start Date Stop Date Status Note LastModified by Organization Details LastModified Time tretinoin 0.05 % topical cream APPLY PEA SIZED AMOUNT TOPICALLY TO THE AFFECTED AREAS ON FACE AT NIGHT 2-3 TIMES WEEKLY. INCREASE TO NIGHTLY TOLERATED* * 2024 active Not Available Not Available Not Avai lable clindamycin 1 % topical gel APPLY A THIN LAYER TO THE AFFECTED AREA (FACE, CHEST, BACK) BY TOPICAL ROUTE EVERY MORNING 2024 active Not Available Not Available Not Avai lable propranolol active Not Available Not A vailable Not Available bupropion HCl active Not Available Not Available Not Available duloxetine active Not Available Not Av ailable Not Available pitavastatin calcium active Not Available Not Available Not Available Vitals None Recorded Social History None recorded. Functional Status None recorded. Mental Status None recorded. Family History Nothing Reported. Medical History No medical history recorded. Gynecological HistoryNo gynecological history recorded. Obstetrics History GPAL:G 0 P 0 0 0 0 Past Encounters Encounter ID Performer Location Encounter Start Date Encounter Closed Date Diagnosis/Indication Diagnosis SNOMED-CT Code Diagnosis ICD10 Code Diagnosis Note [id number] MAHOGANY HANKS PA-C [place] [address] [place] [address] 01/12/2025 08:42:34 01/12/2025 10:14:39 Multiple benign melanocytic nevi [id number] D22.5 L81.4 L82.1 D18.01 Benign appearing lesions.Re assurance given.Sun protection discussed. Look for physical ronak sunscreens with at least SPF 30 containing zinc oxide or titanium dioxide as active ingredient .Recommend monthly self examinatio ns and yearly full skin examinatio n with a dermatolog y provider.P atient instructed to call with any concerns or changing lesions. Dermatofibroma [id number] D23.72 The nature of the diagnosis was explained. Appears clinically benign. Reassuranc e given.Cont inue to monitor area and call with concerns/c hanges. Acne 98817390 L70.8 The nature of the diagnosis was explained. Acne is due to genetics and hormones.D iscussed avoiding factors that may exacerbate the condition. Treatment options and expectatio ns discussed. Recommend OTC BPO washRecomm end regular use of noncomedog enic moisturize r, as many prescripti on acne treatments lead to dry skin.Rx sent for clindamyci n gel. SE reviewed.R x sent for tretinoin 0.05%. SE reviewed.P t encouraged to call with any concerns or questions. Health Concerns Section Related Observation LastModified by Organization Detai ls LastModified Time None Recorded Concern Status LastModified by Organization Details LastModified Time None Recorded Advance Directives Directive None Recorded Payers Insurance Date Sequence Insurance Name Policy Number Policy Gutierrez Covered Member ID Gutierrez Member ID Guarantor Name 01/17/2025 1 [place] [id number] Marcia Jalloh [id number] Marcia Jalloh Notes Date Note Type Note Provider Name and Address Organization Details Recorded Time 01/12/2025 text/html ROS as noted in the HPI New ptFull skin exam-Hx: none-Areas of concern: chest, sides MAHOGANY HANKS PA-C [address] [place], [address], [facility] 01/12/2025 12:11:24 OBGyn Episode No OBEpisode recorded.
--- NOTE | 2025-05-31 13:30 | MM_ITS ---
PROCEDURE INFORMATION: Exam: MG Bilateral Screening 3D Mammography Exam date and time: 05/31/2025 1:28 PM Age: 54 years old Clinical indication: Screening examination. TECHNIQUE: Imaging protocol: Bilateral Screening tomosynthesis and 2D mammography including computer-aided detection (CAD) when performed. COMPARISON: 1. MG MM DIG SCREENING MAMM BI W/CAD 08/23/2023 1:12 PM 2. MG MM DIG SCREENING MAMM BI W/CAD 08/18/2022 9:42 AM FINDINGS: MAMMOGRAPHY: Breast composition: There are scattered areas of fibroglandular density. Mass: None. Architectural distortion: None. Calcifications: No suspicious calcifications. Asymmetric density: None. Skin thickening: None. Axillary adenopathy: None. IMPRESSION: No mammographic evidence of malignancy. Annual screening is recommended unless otherwise clinically indicated. ASSESSMENT: BI-RADS Category 1: Negative.
== END 2025-05-31 23:59 | disposition home or self-care (01) ==
LOC: RAD 13:16
PROVIDERS: PCP Internal Medicine Adolescent Medicine; Visit Provider Nurse Practitioner Obstetrics & Gynecology
DX: Z12.31 Encounter for screening mammogram for malignant neoplasm of breast (principal); R92.323 Mammographic fibroglandular density, bilateral breasts
CPT/HCPCS: 77063; 77067